=== PATIENT | female | born 1955 | race Caucasian/White ===

== ENCOUNTER 2019-08-09 08:52 | Outpatient (CLI) | payer MEDICARE, BC, SELFPAY ==
--- NOTE | ~2019-08-09 | MM_ITS ---
EXAMINATION: MM screening [facility] HISTORY: Screening mammogram TECHNIQUE: Craniocaudal and mediolateral oblique 3-D tomosynthesis images were obtained and synthetic 2-D images were generated. CAD analysis was submitted and interpreted. COMPARISON: 01/25/2017, 10/23/2015, 08/31/2014 BREAST PARENCHYMAL COMPOSITION: There are scattered areas of fibroglandular density. FINDINGS: There is no evidence of suspicious mass, calcification, or architectural distortion to sugg est malignancy in either breast. There has been no suspicious interval change. IMPRESSION: 1. No mammographic evidence of malignancy. 2. Recommend routine screening mammography in one year. BI-RADS Category 1: Negative Reviewed, dictated and finalized at location A. COMMUNICATIONS SPECIALIST
--- NOTE | ~2019-08-09 | DEXA_ITS ---
Bone Density Report Name: Gloria Carr Age: 64 Sex: Female Ethnicity: White Date of : 1955 Indication: postmenopausal; Referring Provider: HILLARY HASKINS Study: Bone densitometry was performed. Exam Date: August 09, 2019 Accession number: [id number] Bone Density: Region BMD T-score Z-score Classification AP Spine (L1-L4) 0.983 -0.6 1.2 Normal Femoral Neck (Left) 0.696 -1.4 0.1 Osteopenia Total Hip (Left) 0.832 -0.9 0.3 Normal Total Hip Bilateral Avg 0.852 -0.8 0.5 Normal Femoral Neck (Right) 0.727 -1.1 0.4 Osteopenia Total Hip (Right) 0.871 -0.6 0.7 Normal World Health Organization criteria for BMD impression classify patients as: Normal (T-score at or above -1.0), Osteopenia (T-score between -1.0 and -2.5), or Osteoporosis (T-score at or below -2.5). 10-year Fracture Risk(1): Major Osteoporotic Fracture 8.2% Hip Fracture 0.8% Reported Risk Factors: [place] (), Neck BMD=0.696, BMI=33.7 (1) FRAX(R) Version 3.08. Fracture probability calculated for an untreated patient. Fracture probability may be lower if the patient has received treatment. Previous Exams: Region Exam Age BMD T-score BMD Change BMD Change Date g/cm2 vs Baseline vs Previous AP Spine(L1-L4) 08/09/2019 64 0.983 -0.6 -0.051(-5.0%)# -0.051(-5.0%)# 07/25/2007 52 1.034 -0.1 Total Hip(Left) 08/09/2019 64 0.832 -0.9 -0.095(-10.3%) -0.095(-10.3%) 07/25/2007 52 0.927 -0.1 Total Hip(Right) 08/09/2019 64 0.871 -0.6 -0.048(-5.2%)# -0.048(-5.2%)# 07/25/2007 52 0.919 -0.2 *Denotes significance at 95% confidence level, LSC for AP Spine = 0.022 g/cm2, LSC for Total Hip = 0.027 g/cm2 Clinical Information Provided by Patient: Patient maximum height was 64 Menopause Age: 49 No regular weight bearing exercise Drinks caffeinated beverages Onset of menses at age 12 Number of children 1 Impression: The patient has low bone mass, based on the Left Femoral Neck T-score. The patient has an estimated ten-year risk of hip fracture of 0.8% and an estimated ten-year risk of major fracture of 8.2%, based on the WHO FRAX algorithm. No significant bone loss was observed. Discussion: BONE DENSITY IS LOW AT ONE OR MORE SKELETAL SITES. This patient's lowest T-score is low at one or more skeletal sites. It meets the World Health Organization's (WHO) criteria for ?low bone mass? (T-score between -1.0 and -2.5). The patient's 10-year risk of fracture as calc
== END 2019-08-09 08:53 | disposition home or self-care (01) ==
LOC: ANHIMG 08:54
PROVIDERS: PCP Family Medicine; Visit Provider Family Medicine
DX: Z12.31 Encounter for screening mammogram for malignant neoplasm of breast (principal); Z78.0 Asymptomatic menopausal state; M85.852 Other specified disorders of bone density and structure, left thigh; M85.851 Other specified disorders of bone density and structure, right thigh
CPT/HCPCS: 77063; 77067; 77080

== ENCOUNTER 2019-08-26 17:17 | Emergency (ER) | payer MEDICARE, BC, SELFPAY ==
[2019-08-26] VITALS (10 sets, daily range): BP systolic 102–181; BP diastolic 50–101; PULSE 68–91; RESP 16–20; TEMP 36.8–36.9; O2SAT 98–100
--- NOTE | ~2019-08-26 | XR_ITS ---
EXAMINATION: XR humerus LT EXAM DATE: 08/26/2019 18:14 INDICATION: Initial encounter following injury, with pain of the left humerus. TECHNIQUE: Orthogonal projections left humerus. There is no prior study for comparison. FINDINGS: There is complete left elbow posterior dislocation. Possible closed post traumatic fractur e of the coronoid process. Humeral shaft, left shoulder are unremarkable. IMPRESSION: Complete posterior elbow dislocation. Reviewed, dictated and finalized at location A. Y OPERATOR
--- NOTE | ~2019-08-26 | XR_ITS ---
XR elbow LT 2V 08/26/2019 21:50 Indication: Post reduction left elbow dislocation Procedure: 2 views left elbow Comparison: 08/26/2019 Findings: Interval reduction of left elbow, now in anatomic alignment. There are subtle ossific densi ties adjacent to the distal aspect of the humerus. Avulsion fracture cannot be excluded. No significa nt soft tissue abnormality. Impression: 1: Anatomic alignment of left elbow post reduction. Subtle ossific densities adjacent to the humerus. Cannot exclude avulsion fracture. Reviewed, dictated and finalized at location A. Impression: 1: Anatomic alignment of left elbow post reduction. Subtle ossific densities ad jacent to the humerus. Cannot exclude avulsion fracture.
--- NOTE | 2019-08-26 18:12 | ED.FALL ---
HPI - Fall General Chief Complaint: Fall <Jessa Almeida PA-C - Last Filed: 08/26/19 22:35> Stated Complaint: fall <JULY Trevino Last Filed: 08/26/19 22:35> Time Seen by Provider: 08/26/19 18:01 <Jessa Almeida PA-C - Last Filed: 08/26/19 22:35> Source: patient <JULY Trevino Last Filed: 08/26/19 22:35> Mode of arrival: ambulatory <JULY Trevino Last Filed: 08/26/19 22:35> Limitations: no limitations <JULY Trevino Last Filed: 08/26/19 22:35> History of Present Illness HPI Narrative: This is a 64 year old female that presents to the ER for left arm injury today. Reports she was outside her barn and tripped and fell forward. Reports falling face first onto the dirt. Reports landing on her left arm. Reports since she has had pain in the mid upper arm. Reports she is unable to move her arm. Denies prodromal symptoms, vision changes, vomiting, loss of consciousness, or numbness. <JULY Trevino Last Filed: 08/26/19 22:35> Related Data Home Medications: Home Medications Medication Instructions Recorded Confirmed esomeprazole magnesium 20 mg 20 mg PO DAILY 07/21/19 07/25/19 capsule,delayed release trazodone 100 mg tablet 100 mg PO .HS tablet 07/25/19 07/25/19 vit C 250 mg-vit E 200 unit-zinc 2 cap PO DAILY cap 07/25/19 07/25/19 ox 12.5 hy-rwjdch-onxkoq-zeax capsule latanoprost 08/26/19 pimecrolimus TOPICAL 08/26/19 <JULY Trevino Last Filed: 08/26/19 22:35> Allergies/Adverse Reactions: Allergies Allergy/AdvReac Type Severity Reaction Status Date / Time No Known Allergies Allergy Verified 08/26/19 17:59 <JULY Trveino Last Filed: 08/26/19 22:35> Review of Systems Review of Systems: Narrative: CONSTITUTIONAL: Denies fever EYES: Denies visual changes GASTROINTESTINAL: Denies vomiting MUSCULOSKELETAL: Reports joint pain, and myalgia. NEUROLOGIC: Denies headache, numbness, or weakness. <Jessa Almeida PA-C - Last Filed: 08/26/19 22:35> All systems reviewed & are unremarkable except as noted in HPI and below <Jessa Almeida PA-C - Last Filed: 08/26/19 22:35> [facility] Past Medical History Medical History: Medical History (Updated 08/26/19 @ 21:53 by Jessa Almeida PA-C) Essential (primary) hypertension Gastro-esophageal reflux disease without esophagitis Glaucoma H/O aortic valve stenosis Pure hypercholesterolemia Vitamin D deficiency <Jessa Almeida PA-C - Last Filed: 08/26/19 22:35> Social History Social History: Social History Smoking status: Never smoker Second hand tobacco smoke exposure: No Alcohol intake: never Gender identity (if verbalized by the patient): Female <Jessa Almeida PA-C - Last Filed: 08/26/19 22:35> Exam Narrative: Exam Narrative: GENERAL: Well-appearing, well-nourished, and in no acute distress. HEAD: Normocephalic. Superficial abrasion to the nose EYES: PERRLA and EOMI. ENT: Nares clear, no rhinorrhea or epistaxis. Mucous membranes moist. Oropharynx without tonsillar hypertrophy exudate or other lesions. Bilateral TMs pearly manning non-bulging NECK: Supple. No adenopathy or masses. No midline spinal tenderness CHEST: Clear to auscultation. No respiratory distress. No wheezes rales or rhonchi HEART: Regular rate and rhythm. No murmur heard. Normal peripheral pulses. EXTREMITIES: Normal range of motion, except decreased ROM in the left elbow due to pain. No edema. Normal radial pulses. Normal sensation SKIN: Warm, dry, no rash. NEURO: No focal deficits. Alert and oriented x3. Cranial nerves II through XII grossly PSYCH: Normal mood and affect <Jessa Almeida PA-C - Last Filed: 08/26/19 22:35> Const: General: cooperative, no acute distress and alert <Saba Agustin MD - Last Filed: 08/26/19 22:49> Nutritional Appearance: well nourished <Saba Vargas
--- NOTE | 2019-08-26 18:50 | PC.NURSE ---
Patient refusing IV at this time, states would like IV placed when she goes to room 8.
[2019-08-26] MEDS: ONDANSETRON INJ 4 MG/2 ML VIAL IV PUSH (19:00)
[2019-08-26] MEDS: MORPHINE SULFATE 4 MG/ML INJ IV PUSH ×2 (19:00→20:38)
--- NOTE | 2019-08-26 21:28 | PC.NURSE ---
KETAMINE 50 MG IVP AND PROPOFOL 40 MG IVP GIVEN PER DR CUNNINGHAM. 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 WILL CONTINUE TO MONITOR
== END 2019-08-26 22:42 | disposition home or self-care (01) ==
PROVIDERS: Emergency Provider Emergency Medicine; PCP Family Medicine
DX: S53.125A Posterior dislocation of left ulnohumeral joint, initial encounter (principal); I10 Essential (primary) hypertension; K21.9 Gastro-esophageal reflux disease without esophagitis; E78.00 Pure hypercholesterolemia, unspecified; E55.9 Vitamin D deficiency, unspecified; W01.0XXA Fall on same level from slipping, tripping and stumbling without subsequent striking against object, initial encounter
CPT/HCPCS: 24600; 73060; 73070; 96374; 96375; 96376; 99285; A4565; J0131; J2270; J2405; J2704; J7030

== ENCOUNTER 2020-04-18 09:53 | Outpatient (CLI) | payer MEDICARE, BC, SELFPAY ==
--- NOTE | 2020-04-18 11:00 | NEURO_ITS ---
Patient Number: [id number] Impression: # Complains of numbness of left lower extremity. # Normal nerve conduction study. # Normal needle/EMG exam. # Clinical correlation recommended. Nerve Conduction Studies Anti Sensory Summary Table Stim Site NR Peak (ms) P-T Amp (?V) Site1 Site2 Delta-P (ms) Dist (cm) Quentin (m/s) Left Sup Fibular Anti Sensory (Ant Lat Mall) 14 cm 3.0 11.5 14 cm Ant Lat Mall 3.0 16.0 53 Left Sural Anti Sensory (Lat Mall) Calf 3.9 18.2 Calf Lat Mall 3.9 16.0 41 Motor Summary Table Stim Site NR Onset (ms) O-P Amp (mV) Site1 Site2 Delta-0 (ms) Dist (cm) Quentin (m/s) Left Peroneal Motor (Vastus Med) Ankle 4.4 1.6 Popit Ankle 8.3 40.0 48 Popit 12.7 1.4 Left Tibial Motor (Abd Valenzuela Brev) Ankle 4.1 2.9 Knee Ankle 9.0 40.0 44 Knee 13.1 0.9 F Wave Studies NR F-Lat (ms) L-R F-Lat (ms) Left Peroneal (Mrkrs) (EDB) 48.75 Left Tibial (Mrkrs) (Abd Hallucis) 49.39 EMG Side Muscle Nerve Root Ins Act Fibs Amp Dur Recrt Comment Left AntTibialis Dp Br Fibular L4-5 Nml Nml Nml Nml Nml Left Gastroc Tibial S1-2 Nml Nml Nml Nml Nml Left Fibularis Long Sup Br Fibular L5-S1 Nml Nml Nml Nml Nml Left Flex Dig Long Tibial L5-S2 Nml Nml Nml Nml Nml Left Ext Dig Brev Dp Br Fibular L5, S1 Nml Nml Nml Nml Nml Left QuadratusFem QuadFemoris L4-5, S1 Nml Nml Nml Nml Nml MTDD
== END 2020-04-18 09:54 | disposition home or self-care (01) ==
LOC: ANHNEURO 09:55
PROVIDERS: PCP Family Medicine; Visit Provider Physician Assistant
DX: M79.662 Pain in left lower leg (principal)
CPT/HCPCS: 95886; 95908

== ENCOUNTER 2020-07-19 10:28 | Outpatient (CLI) | payer MEDICARE, BC, SELFPAY ==
[2020-07-19 11:54] LABS: Alanine Aminotransferase 19 U/L (4-35); Albumin Level 3.9 g/dL (3.5-5.1); Alkaline Phosphatase 75 U/L (38-126); Anion Gap 0 mmol/L (8-16); Aspartate Amino Transferase 23 U/L (14-36); Bilirubin,Total 0.4 mg/dL (0.2-1.3); Blood Urea Nitrogen 19 mg/dL (7-17); Carbon Dioxide 33 mmol/L (22-30); Chloride 105 mmol/L (98-107); Cholesterol 212 mg/dL (0-200); Estimated Glomerular Filt Rate > 60; Glucose 93 mg/dL (65-105); HDL Direct 50 mg/dL; Potassium 4.3 mmol/L (3.4-5.0); Sodium 138 mmol/L (137-145); Triglycerides 164 mg/dL (<150)
[2020-07-19 12:05] LABS: LDL Cholesterol Direct 109 mg/dL
== END 2020-07-19 10:29 | disposition home or self-care (01) ==
LOC: ANHLAB 10:30
PROVIDERS: PCP Family Medicine; Visit Provider Physician Assistant
DX: E78.5 Hyperlipidemia, unspecified (principal); I10 Essential (primary) hypertension
CPT/HCPCS: 36415; 80053; 80061

== ENCOUNTER 2020-09-12 18:55 | Emergency (ER) | payer MEDICARE, BC, SELFPAY ==
[2020-09-12 18:56] VITALS: BP 208/101; PULSE 75; RESP 16; TEMP 36.1; O2SAT 99
--- NOTE | 2020-09-12 19:53 | ED.SKABFB ---
HPI - Skin/Abscess/Foreign Bdy General Chief complaint: Skin/Abscess/Foreign Body Stated complaint: i think i have staph or MRSA Time Seen by Provider: 09/12/20 19:43 Source: patient, RN notes reviewed and old records reviewed History of Present Illness HPI narrative: 55-year-old female presents to emergency department for a rash on the lower part of her abdomen for the past 3 days. Patient reports it to be itchy and painful. She has never had this in the past before. She applied her ringworm cream to help with the rash. Patient denies being a diabetic. Patient also reports sweating a lot. No nausea or vomiting. No chest pain or shortness of breath. No fever or chills. Related Data Home Medications Medication Instructions Recorded Confirmed esomeprazole magnesium 20 mg 20 mg PO DAILY 07/21/19 01/18/20 capsule,delayed release trazodone 100 mg tablet 100 mg PO .HS tablet 07/25/19 01/18/20 vit C 250 mg-vit E 200 unit-zinc 2 cap PO DAILY cap 07/25/19 01/18/20 ox 12.5 yd-hxauyn-ivppnf-zeax capsule latanoprost 08/26/19 01/18/20 pimecrolimus TOPICAL 08/26/19 01/18/20 Allergies Allergy/AdvReac Type Severity Reaction Status Date / Time No Known Allergies Allergy Verified 02/13/20 10:02 Review of Systems Review of Systems: Narrative: CONSTITUTIONAL: Denies fever, chills, or sweats. EYES: Denies visual changes, redness, or discharge. ENT: Denies rhinorrhea, congestion, sore throat, or otalgia. CARDIOVASCULAR: Denies chest pain, palpitations, or edema. RESPIRATORY: Denies cough or dyspnea. GASTROINTESTINAL: Denies abdominal pain, nausea, vomiting, or diarrhea. GENITOURINARY: Denies dysuria or hematuria. SKIN: Reports rash and itching MUSCULOSKELETAL: Denies back pain, joint pain, or myalgia. NEUROLOGIC: Denies headache, numbness, dizziness, or weakness. PSYCHIATRIC: Denies anxiety or depression. All systems reviewed & are unremarkable except as noted in HPI and below (ROS) [facility] Past Medical History Medical History (Updated 09/12/20 @ 19:56 by Arnaldo King DO) Arthritis Elbow dislocation Essential (primary) hypertension Gastro-esophageal reflux disease without esophagitis Glaucoma H/O aortic valve stenosis Pure hypercholesterolemia Vision abnormalities Vitamin D deficiency Surgical History Surgical History History of total left knee replacement Family History Family History Sibling Family history of thyroid disease Hypertension Father Hypertension Mother Family history of Parkinson's disease Family history of heart disease in male family member before age 55 Social History Social History Smoking status: Never smoker Second hand tobacco smoke exposure: No Alcohol intake: current Gender identity (if verbalized by the patient): Female Exam Narrative: Exam Narrative: GENERAL: Well-appearing, well-nourished, and in no acute distress. HEAD: Normocephalic, atraumatic. EYES: PERRLA and EOMI. ENT: Nares clear, no rhinorrhea or epistaxis. Mucous membranes moist. NECK: Supple. CHEST: Clear to auscultation. No respiratory distress. HEART: Regular rate and rhythm. No murmur heard. Normal peripheral pulses. ABDOMEN: Soft, nontender, nondistended, normal active bowel sounds. EXTREMITIES: Normal range of motion. No edema. SKIN: Warm. Blanching rash in the skin fold of lower abdomen. NEURO: No focal deficits. Alert and oriented x3. PSYCH: Normal mood and affect. Course Vital Signs Vital signs: Vital Signs Temperature 36.1 C L 09/12/20 18:56 Pulse Rate 75 09/12/20 18:56 Respiratory Rate 16 09/12/20 18:56 Blood Pressure 208/101 H 09/12/20 18:56 Pulse Oximetry 99 09/12/20 18:56 Temperature 36.1 C L 09/12/20 18:56 Pulse Rate 75 09/12/20 18:56 Respiratory Rate 16 09/12/20 18:56 Blood Pressur
== END 2020-09-12 20:26 | disposition home or self-care (01) ==
PROVIDERS: Emergency Provider Emergency Medicine; PCP Family Medicine
DX: B35.9 Dermatophytosis, unspecified (principal); M19.90 Unspecified osteoarthritis, unspecified site; I10 Essential (primary) hypertension; K21.9 Gastro-esophageal reflux disease without esophagitis; E78.00 Pure hypercholesterolemia, unspecified; E55.9 Vitamin D deficiency, unspecified; Z96.652 Presence of left artificial knee joint
CPT/HCPCS: 99283

== ENCOUNTER → 2021-01-23 12:47 | Outpatient (CLI) | payer MEDICARE, BC, SELFPAY ==
--- NOTE | ~2021-01-23 | XR_ITS ---
EXAMINATION: XR lumbar spine min 4V DATE: 01/23/2021 13:29 INDICATION: Low back pain. TECHNIQUE: 5 views of lumbar spine were obtained. COMPARISON: None. FINDINGS: There is 4 mm anterolisthesis of L4 on L5. Vertebral body heights are normal. There is mild ly decreased disc height at L4-L5 and moderately decreased disc height at L5-S1. There is moderate to severe facet joint osteoarthritis on the right from L2-L3 through L5-S1 and on the left from L3-L4 t hrough L5-S1. IMPRESSION: 1. Moderate lumbar spondylosis. Reviewed, dictated and finalized at location A.
--- NOTE | ~2021-01-23 | XR_ITS ---
EXAMINATION: XR sacroiliac joints min 3V DATE: 01/23/2021 13:29 INDICATION: Sciatica, unspecified side. Low back pain. Pain at the sacroiliac joints. TECHNIQUE: 3 views of the sacrum and coccyx were obtained. COMPARISON: None. FINDINGS: Bone alignment is normal. No fracture. There is moderate lumbar spondylosis. There is mild osteoarthritis of the hips. The sacroiliac joints are normal. IMPRESSION: 1. Normal sacroiliac joints. 2. Mild osteoarthritis of the hips. 3. Moderate lumbar spondylosis. Reviewed, dictated and finalized at location A.
== END ==
PROVIDERS: PCP Family Medicine; Visit Provider Physician Assistant
DX: M16.0 Bilateral primary osteoarthritis of hip (principal); M47.896 Other spondylosis, lumbar region
CPT/HCPCS: 72110; 72202

== ENCOUNTER 2021-05-02 15:32 | Emergency (ER) | payer MEDICARE, BC, SELFPAY ==
[2021-05-02 15:41] VITALS: BP 164/107; PULSE 90; RESP 16; TEMP 36.2; O2SAT 100
--- NOTE | 2021-05-02 15:49 | PC.NURSE ---
[place] poison control contacted (Ragini FOSS). states pt is to wash hands to remove chemical and slow rewarming and then treat pt for frostbite.
--- NOTE | 2021-05-02 16:22 | ED.EXTPRO ---
HPI - Extremity Problem General Chief complaint: Extremity Problem,Nontraumatic Stated complaint: finger pain Time Seen by Provider: 05/02/21 16:02 Source: patient Mode of arrival: ambulatory Limitations: no limitations History of Present Illness HPI Narrative: Patient was using a can of ether to to start Engine, after finishing the ether can noticed that the tip of her right index is white, painful and numb. Related Data Home Medications Medication Instructions Recorded Confirmed esomeprazole magnesium 20 mg 20 mg PO DAILY 07/21/19 01/23/21 capsule,delayed release trazodone 100 mg tablet 100 mg PO .HS tablet 07/25/19 01/23/21 vit C 250 mg-vit E 200 unit-zinc 2 cap PO DAILY cap 07/25/19 01/23/21 ox 12.5 hp-dvjmlp-cgliut-zeax capsule latanoprost 08/26/19 01/23/21 pimecrolimus TOPICAL 08/26/19 01/23/21 flaxseed oil 1,000 mg capsule 1,000 mg PO DAILY 01/22/21 01/23/21 flaxseed oil 1,300 mg-omega 3,6,9 cap PO 01/22/21 01/23/21 845 mg-117 mg-117 mg capsule glucosamine-chondroitin 250 mg-200 2 tablet PO TID 01/22/21 01/23/21 mg tablet multivitamin 1 tablet PO DAILY 01/22/21 01/23/21 Allergies Allergy/AdvReac Type Severity Reaction Status Date / Time No Known Allergies Allergy Verified 01/23/21 12:13 Review of Systems Review of Systems: CONSTITUTIONAL: Denies fever, chills, or sweats. EYES: Denies visual changes, redness, or discharge. ENT: Denies rhinorrhea, congestion, sore throat, or otalgia. CARDIOVASCULAR: Denies chest pain, palpitations, or edema. RESPIRATORY: Denies cough or dyspnea. GASTROINTESTINAL: Denies abdominal pain, nausea, vomiting, or diarrhea. GENITOURINARY: Denies dysuria or hematuria. SKIN: Denies rash or itching. MUSCULOSKELETAL: Denies back pain, joint pain, or myalgia. NEUROLOGIC: Denies headache, numbness, or weakness. PSYCHIATRIC: Denies anxiety or depression. [facility] Past Medical History Medical History Arthritis Elbow dislocation Essential (primary) hypertension Gastro-esophageal reflux disease without esophagitis Glaucoma H/O aortic valve stenosis Pure hypercholesterolemia Vision abnormalities Vitamin D deficiency Surgical History Surgical History History of total left knee replacement Family History Family History Sibling Family history of thyroid disease Hypertension Father Hypertension Mother Family history of Parkinson's disease Family history of heart disease in male family member before age 55 Social History Social History Smoking status: Never smoker Second hand tobacco smoke exposure: No Alcohol intake: current Alcohol use details: 2 drinks per month Gender identity (if verbalized by the patient): Female Exam Narrative: General appearance: Well-developed, well-nourished Skin: Normal color, the tip of the right index showing tense feeling, normal coloration like the rest of the fingers, slightly tender to touch, normal till the skin, no blisters, normal pulse oximetry like the rest of the other fingers, normal capillary refill Vascular: Normal peripheral pulses, normal capillary refill. 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
--- NOTE | 2021-05-02 16:25 | PC.NURSE ---
pulse ox on right index finger 96%, and 96% on right middle fnger
== END 2021-05-02 17:32 | disposition home or self-care (01) ==
PROVIDERS: Emergency Provider Emergency Medicine; PCP Family Medicine
DX: T69.9XXA Effect of reduced temperature, unspecified, initial encounter (principal); T33.90XA Superficial frostbite of unspecified sites, initial encounter; M19.90 Unspecified osteoarthritis, unspecified site; I10 Essential (primary) hypertension; E78.00 Pure hypercholesterolemia, unspecified
CPT/HCPCS: 99283

== ENCOUNTER 2021-11-04 09:23 | Outpatient (CLI) | payer MEDICARE, BC, SELFPAY ==
[2021-11-04 10:00] LABS: Alanine Aminotransferase 21 U/L (6-35); Albumin Level 4.4 g/dL (3.5-5.1); Alkaline Phosphatase 76 U/L (38-126); Anion Gap 3 mmol/L (8-16); Aspartate Amino Transferase 24 U/L (14-36); Bilirubin,Total 0.7 mg/dL (0.2-1.3); Blood Urea Nitrogen 19 mg/dL (7-17); Calcium 9.1 mg/dL (8.4-10.2); Carbon Dioxide 31 mmol/L (22-30); Chloride 105 mmol/L (98-107); Cholesterol 243 mg/dL (0-200); Estimated Glomerular Filt Rate > 60; Glucose 99 mg/dL (65-110); HDL Direct 59 mg/dL; Potassium 4.6 mmol/L (3.4-5.0); Sodium 139 mmol/L (137-145); Triglycerides 98 mg/dL (<150)
[2021-11-04 10:11] LABS: LDL Cholesterol Direct 124 mg/dL
[2021-11-04 10:37] LABS: Hemoglobin A1C 5.3 % (<5.7)
== END 2021-11-04 09:24 | disposition home or self-care (01) ==
LOC: ANHLAB 09:25
PROVIDERS: PCP Family Medicine; Visit Provider Physician Assistant
DX: Z13.1 Encounter for screening for diabetes mellitus (principal); R73.09 Other abnormal glucose; E78.5 Hyperlipidemia, unspecified
CPT/HCPCS: 36415; 80053; 80061; 83036

== ENCOUNTER 2022-01-27 08:42 | Outpatient (CLI) | payer MEDICARE, BC, SELFPAY ==
--- NOTE | ~2022-01-27 | MM_ITS ---
EXAMINATION: MM screening [facility] BI w [facility] HISTORY: Screening mammogram TECHNIQUE: Craniocaudal and mediolateral oblique 3-D tomosynthesis images were obtained and synthetic 2-D images were generated. CAD analysis was submitted and interpreted. COMPARISON: 08/09/2019, 01/25/2017, 10/23/2015 BREAST PARENCHYMAL COMPOSITION: There are scattered areas of fibroglandular density. FINDINGS: There is no suspicious mass, calcification, or architectural distortion to suggest malignan cy in either breast. There has been no suspicious interval change. IMPRESSION: 1. No mammographic evidence of malignancy. 2. Recommend routine screening mammography in one year. BI-RADS Category 1: Negative Reviewed, dictated and finalized at location A.
== END 2022-01-27 08:43 | disposition home or self-care (01) ==
PROVIDERS: PCP Family Medicine; Visit Provider Physician Assistant
DX: Z12.31 Encounter for screening mammogram for malignant neoplasm of breast (principal)
CPT/HCPCS: 77063; 77067

== ENCOUNTER 2022-04-18 12:19 | Emergency (ER) | payer MEDICARE, BC, SELFPAY ==
--- NOTE | ~2022-04-18 | XR_ITS ---
XR shoulder RT min 2V 04/18/2022 12:43 Indication: Right shoulder pain after heavy lifting Procedure: 4 views right shoulder Comparison: No prior studies for comparison. Findings: No acute fracture or traumatic malalignment. There are circumscribed areas of ossification surrounding the humeral head, possibly calcific tendinopathy. There is mild polyarticular osteoarthri tis. No significant abnormality of the ribs. Impression: 1: No acute fracture. 2: Mild polyarticular osteoarthritis with possible calcific tendinopathy. Reviewed, dictated and finalized at location A. Impression: 1: No acute fracture. 2: Mild polyarticular osteoarthritis with possible calcific tendinopathy.
[2022-04-18 12:30] VITALS: BP 138/87; PULSE 84; RESP 16; TEMP 36.4; O2SAT 98
[2022-04-18] MEDS: IBUPROFEN 600 MG TABLET PO (13:05)
--- NOTE | 2022-04-18 13:09 | ED.UPPEXIN ---
HPI - Extremity Injury (Upper) General Chief Complaint: Extremity Injury, Upper Stated Complaint: right shoulder pain Time Seen by Provider: 04/18/22 12:39 History of Present Illness HPI narrative: Patient is a 67-year-old female who presents ER with right shoulder pain. 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 She now has pain with external rotation and trying to lift her arm up. No numbness or tingling. No direct trauma to the shoulder. Has not tried any pain medication. Related Data Home Medications Medication Instructions Recorded Confirmed esomeprazole magnesium 20 mg 20 mg PO DAILY 07/21/19 06/09/21 capsule,delayed release (Nexium) trazodone 100 mg tablet 100 mg PO .HS 07/25/19 06/09/21 vit C 250 mg-vit E 200 unit-zinc 2 cap PO DAILY 07/25/19 06/09/21 ox 12.5 qx-ragiem-irenkw-zeax capsule (ICaps AREDS2) latanoprost 0.005 % eye drops 08/26/19 06/09/21 pimecrolimus 1 % topical cream topical 08/26/19 06/09/21 flaxseed oil 1,000 mg capsule 1,000 mg PO DAILY 01/22/21 06/09/21 (Arbon-3 Flaxseed Oil) glucosamine-chondroitin 250 mg-200 2 tablet PO TID 01/22/21 06/09/21 mg tablet (Osteo Bi-Flex) multivitamin (Multiple Vitamins 1 tablet PO DAILY 01/22/21 06/09/21 tablet) calcium carb 300 mg-D3 800 1 tablet PO DAILY 12/11/21 unit-mag ox 25 mg-certified endoscopy technician 0.5 mg-donato-Zn tablet (Caltrate + D3 Plus Minerals) Allergies Allergy/AdvReac Type Severity Reaction Status Date / Time No Known Allergies Allergy Verified 04/18/22 13:11 Review of Systems Constitutional: Constitutional: Denies chills, Denies fatigue and Denies fever(s) Gastrointestinal: Gastrointestinal: Denies abdominal pain, Denies nausea and Denies vomiting Musculoskeletal: Musculoskeletal: Reports arthralgias and Denies joint swelling Neurologic: Denies focal weakness and Denies numbness PMFSH Past Medical History Medical History (Updated 04/18/22 @ 13:11 by Charles Jensen MD) Aortic stenosis Arthritis Elbow dislocation Essential (primary) hypertension Gastro-esophageal reflux disease without esophagitis Glaucoma H/O aortic valve stenosis Pure hypercholesterolemia Vision abnormalities Vitamin D deficiency Surgical History Surgical History History of total left knee replacement Family History Family History Sibling Family history of thyroid disease Hypertension Father Hypertension Mother Family history of Parkinson's disease Family history of heart disease in male family member before age 55 Social History Social History (Updated 12/11/21 @ 09:57 by Viri Martin [facility]) Smoking status: Never smoker Second hand tobacco smoke exposure: No Alcohol intake: never Substance use: never Substance use type: does not use Gender identity (if verbalized by the patient): Female Exam Narrative: GENERAL: Well-appearing, well-nourished, and in no acute distress. HEAD: Normocephalic, atraumatic. ENT: Mucous membranes moist. CHEST: Clear to auscultation. No respiratory distress. HEART: Regular rate and rhythm. Normal peripheral pulses. EXTREMITIES: Tender palpation right anterior shoulder. Increased pain with external rotation. Normal internal rotation patient able to reach midline of her mid back. No swelling or bruising noted. SKIN: Warm, dry, no rash. NEURO: Alert and oriented x3. PSYCH: Normal mood and affect. Course Course Emergency Course: Patient resting comfortably. Informed of results. Discussed treatment plan. Patient verbalized understanding. Vital Signs Vital signs: Vital Signs Temperature 97.6 F 04/18/22 12:30 Pulse Rate 84 04/18/22 12:30 Respiratory Rate 16 04/18/22 12:30 Blood Pressure 138/87 04/18/22 12:30 Pulse Oximetry 98 04/18/22 12:30 Temperature 97.6 F 04/18/22 12:30 Pulse Rate 84 04/18/22 12:30
== END 2022-04-18 13:35 | disposition home or self-care (01) ==
LOC: ANHED 13:19
PROVIDERS: Emergency Provider Emergency Medicine; PCP Family Medicine
DX: M75.31 Calcific tendinitis of right shoulder (principal); I35.0 Nonrheumatic aortic (valve) stenosis; I10 Essential (primary) hypertension; M19.011 Primary osteoarthritis, right shoulder; K21.9 Gastro-esophageal reflux disease without esophagitis; H40.9 Unspecified glaucoma; E78.00 Pure hypercholesterolemia, unspecified; E55.9 Vitamin D deficiency, unspecified; Z96.652 Presence of left artificial knee joint
CPT/HCPCS: 73030; 99283; A9270

== ENCOUNTER 2022-05-23 09:40 | Emergency (ER) | payer MEDICARE, BC, SELFPAY ==
--- NOTE | ~2022-05-23 | XR_ITS ---
EXAMINATION: XR chest 1V portable 05/23/2022 10:38 INDICATION: Cough PROCEDURE: AP portable chest COMPARISON: No prior studies for comparison. FINDINGS: The lungs are clear. The cardiomediastinal silhouette is within normal limits. There are no pleural effusions. There is no pneumothorax suspected. IMPRESSION: 1: NO ACUTE CARDIOPULMONARY DISEASE. Reviewed, dictated and finalized at location A. [employer]
[2022-05-23 09:47] VITALS: BP 150/85; PULSE 97; RESP 16; TEMP 37; O2SAT 100
[2022-05-23 10:26] VITALS: BP 158/93; PULSE 100; RESP 16; O2SAT 100
[2022-05-23 10:54] LABS: Influenza A QL RT-PCR Negative (Negative); Influenza B QL RT-PCR Negative (Negative); RSV RNA, RT-PCR Negative (Negative); SARS-CoV-2 RNA PCR Positive
--- NOTE | 2022-05-23 11:15 | ED.URI ---
HPI - URI/Sore Throat General Chief Complaint: Upper Respiratory Infection Stated Complaint: sinus problems Time Seen by Provider: 05/23/22 10:31 Source: patient Mode of arrival: ambulatory Limitations: no limitations History of Present Illness HPI Narrative: Patient is a 67-year-old female who presents the ED with report of sinus pressure. Patient reports having sinus issues for the last 1 week, including sinus congestion, sinus pressure, headache, mild cough, sore throat, postnasal drip. She reported having a subjective fever this morning, which prompted her presentation. She did not take anything for her fever. Denies nausea, vomiting, chest pain, difficulty breathing, abdominal pain. Patient reports she is scheduled to undergo a ARACELI next week for further management of aortic stenosis. Related Data Home Medications Medication Instructions Recorded Confirmed esomeprazole magnesium 20 mg 20 mg PO DAILY 07/21/19 06/09/21 capsule,delayed release (Nexium) trazodone 100 mg tablet 100 mg PO .HS 07/25/19 06/09/21 vit C 250 mg-vit E 200 unit-zinc 2 cap PO DAILY 07/25/19 06/09/21 ox 12.5 vu-ciccfr-bpxqtb-zeax capsule (ICaps AREDS2) latanoprost 0.005 % eye drops 08/26/19 06/09/21 pimecrolimus 1 % topical cream topical 08/26/19 06/09/21 flaxseed oil 1,000 mg capsule 1,000 mg PO DAILY 01/22/21 06/09/21 (Krypton-3 Flaxseed Oil) glucosamine-chondroitin 250 mg-200 2 tablet PO TID 01/22/21 06/09/21 mg tablet (Osteo Bi-Flex) multivitamin (Multiple Vitamins 1 tablet PO DAILY 01/22/21 06/09/21 tablet) calcium carb 300 mg-D3 800 1 tablet PO DAILY 12/11/21 unit-mag ox 25 mg-copper tapper 0.5 mg-donato-Zn tablet (Caltrate + D3 Plus Minerals) Allergies Allergy/AdvReac Type Severity Reaction Status Date / Time No Known Allergies Allergy Verified 04/18/22 13:11 Review of Systems Review of Systems: CONSTITUTIONAL: Reports subjective fever. ENT: Reports sinus pressure and congestion, PND, sore throat. CARDIOVASCULAR: Denies chest pain. RESPIRATORY: Reports mild cough. Denies dyspnea. GASTROINTESTINAL: Denies abdominal pain, nausea, vomiting, or diarrhea. MUSCULOSKELETAL: Denies myalgia. NEUROLOGIC: Reports headache. All systems reviewed & are unremarkable except as noted in HPI and below PMFSH Past Medical History Medical History Aortic stenosis Arthritis Elbow dislocation Essential (primary) hypertension Gastro-esophageal reflux disease without esophagitis Glaucoma H/O aortic valve stenosis Pure hypercholesterolemia Vision abnormalities Vitamin D deficiency Surgical History Surgical History History of total left knee replacement Family History Family History Sibling Family history of thyroid disease Hypertension Father Hypertension Mother Family history of Parkinson's disease Family history of heart disease in male family member before age 55 Social History Social History Smoking status: Never smoker Second hand tobacco smoke exposure: No Alcohol intake: never Substance use: never Substance use type: does not use Gender identity (if verbalized by the patient): Female Exam Narrative: GENERAL: Well appearing, well-nourished, non-toxic, in no acute distress. HEAD: Normocephalic, atraumatic. EYES: PERRLA, EOMI, conjunctiva clear. ENT: No significant posterior pharynx erythema. No tonsillar hypertrophy or exudate. No nasal discharge. MMs moist. NECK: Supple. No adenopathy, no masses. RESPIRATORY: Airway patent, respirations nonlabored. Clear to auscultation bilaterally, no rales, rhonchi, wheezing. CARDIOVASCULAR: Regular rate and rhythm, +murmur. Radial pulses 2+ and equal bilaterally. ABDOMINAL: Soft, nontender, nondistended, no hepatosplenomegaly. Normo
== END 2022-05-23 12:47 | disposition home or self-care (01) ==
PROVIDERS: Emergency Medicine; Emergency Provider Physician Assistant; PCP Family Medicine
DX: U07.1 COVID-19 (principal); I35.0 Nonrheumatic aortic (valve) stenosis; I10 Essential (primary) hypertension; E78.00 Pure hypercholesterolemia, unspecified; E55.9 Vitamin D deficiency, unspecified; H40.9 Unspecified glaucoma; K21.9 Gastro-esophageal reflux disease without esophagitis; M19.90 Unspecified osteoarthritis, unspecified site; Z96.652 Presence of left artificial knee joint
CPT/HCPCS: 71045; 87637; 99283

== ENCOUNTER 2022-06-23 10:24 | Outpatient (CLI) | payer MEDICARE, BC, SELFPAY ==
[2022-06-23 12:21] LABS: Alanine Aminotransferase 30 U/L (6-35); Albumin Level 4.4 g/dL (3.5-5.1); Alkaline Phosphatase 73 U/L (38-126); Anion Gap 6 mmol/L (8-16); Aspartate Amino Transferase 24 U/L (14-36); Bilirubin,Total 0.5 mg/dL (0.2-1.3); Blood Urea Nitrogen 17 mg/dL (7-17); Calcium 9.2 mg/dL (8.4-10.2); Carbon Dioxide 31 mmol/L (22-30); Chloride 106 mmol/L (98-107); Cholesterol 260 mg/dL (0-200); Estimated Glomerular Filt Rate > 60; Glucose 88 mg/dL (65-110); HDL Direct 59 mg/dL; Potassium 4.1 mmol/L (3.4-5.0); Sodium 143 mmol/L (137-145); Triglycerides 118 mg/dL (<150)
[2022-06-23 12:32] LABS: LDL Cholesterol Direct 125 mg/dL
== END 2022-06-23 10:25 | disposition home or self-care (01) ==
PROVIDERS: PCP Family Medicine; Referring Provider Internal Medicine Cardiovascular Disease; Visit Provider Physician Assistant
DX: I10 Essential (primary) hypertension (principal); Z13.220 Encounter for screening for lipoid disorders; Z13.1 Encounter for screening for diabetes mellitus; I35.0 Nonrheumatic aortic (valve) stenosis; Z01.810 Encounter for preprocedural cardiovascular examination
CPT/HCPCS: 36415; 80053; 80061; 83036

== ENCOUNTER 2023-03-22 10:00 | Outpatient (CLI) | payer MEDICARE, BC, SELFPAY ==
--- NOTE | ~2023-03-22 | MM_ITS ---
EXAMINATION: MM screening [facility] [place] HISTORY: Screening mammogram TECHNIQUE: Craniocaudal and mediolateral oblique 3-D tomosynthesis images were obtained and synthetic 2-D images were generated. CAD analysis was submitted and interpreted. COMPARISON: 01/27/2022, 08/09/2019, 01/25/2017 BREAST PARENCHYMAL COMPOSITION: There are scattered areas of fibroglandular density. FINDINGS: No suspicious mass, calcification, or architectural distortion are identified in either ander ast to suggest malignancy. There has been no suspicious interval change. IMPRESSION: 1. No mammographic evidence of malignancy. 2. Recommend routine screening mammography in one year. BI-RADS Category 1: Negative Reviewed, dictated and finalized at location A.
== END 2023-03-22 10:01 | disposition home or self-care (01) ==
LOC: ANHIMG 10:02
PROVIDERS: PCP Family Medicine; Visit Provider Family Medicine
DX: Z12.31 Encounter for screening mammogram for malignant neoplasm of breast (principal)
CPT/HCPCS: 77063; 77067

== ENCOUNTER 2023-05-21 10:51 | Outpatient (CLI) | payer MEDICARE, BC, SELFPAY ==
[2023-05-21 11:17] LABS: Basophils Absolute Auto 0.1 K/mm3 (0.0-0.1); Basophils Percent Auto 0.7 % (0.2-1.2); Eosinophils Absolute Auto 0.1 K/mm3 (0-0.3); Eosinophils Percent Auto 1.4 % (0-4.4); Hemoglobin 13.6 g/dL (12.0-15.0); Immature Granulocyte Absolute 0.02 K/mm3 (0.00-0.031); Immature Granulocyte Percent A 0.3 % (0-0.5); Lymphocytes Absolute Auto 2.03 K/mm3 (0.9-3.2); Lymphocytes Percent Auto 26.7 % (18.3-44.2); Mean Corpuscular HGB Conc 32.4 g/dl (32-36); Mean Corpuscular Hemoglobin 28.9 pg (26-34); Mean Corpuscular Volume 89.4 fl (80-100); Mean Platelet Volume 9.8 fl (7.4-10.4); Monocytes Absolute Auto 0.6 K/mm3 (0.1-0.6); Monocytes Percent Auto 7.8 % (2.6-8.5); Neutrophils Absolute Auto 4.8 K/mm3 (1.3-6.7); Neutrophils Percent Auto 63.1 % (45.5-73.1); Platelet Count Result 257 k/mm3 (150-375); Red Cell Distribution Width 13.5 % (11.5-14.5); White Blood Count 7.6 K/mm3 (4.5-10.0)
[2023-05-21 11:26] LABS: Alanine Aminotransferase 22 U/L (6-35); Albumin Level 4.2 g/dL (3.5-5.1); Alkaline Phosphatase 84 U/L (38-126); Anion Gap 6 mmol/L (8-16); Aspartate Amino Transferase 22 U/L (14-36); Bilirubin,Total 0.6 mg/dL (0.2-1.3); Blood Urea Nitrogen 18 mg/dL (7-17); Calcium 9.3 mg/dL (8.4-10.2); Carbon Dioxide 29 mmol/L (22-30); Chloride 105 mmol/L (98-107); Cholesterol 243 mg/dL (0-200); Estimated Glomerular Filt Rate > 60; Glucose 93 mg/dL (65-110); HDL Direct 61 mg/dL; Potassium 4.1 mmol/L (3.4-5.0); Sodium 140 mmol/L (137-145); Triglycerides 117 mg/dL (<150)
[2023-05-21 11:37] LABS: LDL Cholesterol Direct 123 mg/dL
[2023-05-21 11:42] LABS: Hemoglobin A1C 5.1 % (<5.7)
== END 2023-05-21 10:52 | disposition home or self-care (01) ==
PROVIDERS: PCP Family Medicine; Referring Provider Family Medicine; Visit Provider Physician Assistant Medical
DX: R53.83 Other fatigue (principal); R73.9 Hyperglycemia, unspecified; E78.2 Mixed hyperlipidemia
CPT/HCPCS: 36415; 80053; 80061; 83036; 85025

== ENCOUNTER 2025-01-15 06:57 | Outpatient (CLI) | payer MEDICARE, BC, SELFPAY ==
--- OUTSIDE RECORDS SUMMARY | 2025-01-15 07:01 | XMS_ITS | Encounter Summary ---
Author Organization [facility] Address [address] [place] [address] Care Team Providers Care Sports Physician Name Role Phone Nely Matamoros MD Primary Care Provider [phone] Encounter Details Date Type Department Care Team (Late st Contact Info) Description 12/20/2024 Cardiology Conference [facility] Non-[facility] Cardiac Diagnostic Testing [address] [place] [address] Charles Stapleton, [place] Social History Tobacco Use Types Packs/Day Years Used Date Smoking Tobacco: Never Passive Smoke Exposure: Never Smokeless Tobacco: Never Alcohol Use Standard Drinks/Week Comments Yes 0 (1 standard drink = 0.6 oz pur e alcohol) AUDIT-C Answer Date Recorded Frequency of Alcohol Consumption Not on file 06/25/2022 Q2: How many drinks containi ng alcohol do you have on a typical day when you are drinking? 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 Gender Identity Not on file Sexual Orientation Not on file documented as of this encounter Plan of Treatment Upcoming Encounters Date Type Department Care Team (Latest Contact Info) Description 01/18/2025 11:30 AM CDT Hospital Encounter [facility] Card[facility] [address] [place] [address] Gunner Sauceda MD [address] [place], [place] [id number] Aortic valve stenosis, etiology of cardiac valve disease unspecified 01/18/2025 11:30 AM CDT - 01/18/2025 1:00 PM CDT Surgery [facility] [address] [place] [address] Gunner Sauceda MD [address] [facility] [address] [place] [id number] [place] [address] LEFT HEART CATHETERIZATION WITH CORONARY ANGIOGRAPHY AND WITH OR WITHOUT LEFT VENTRICULOGRAM [id number] documented as of this encounter Visit Diagnoses Not on filedocumented in this encounter Care Teams Sports Physician Relationship Specialty Start Date End Date Nely Matamoros MD PCP - General 10/23/16 documented as of this encounter
--- OUTSIDE RECORDS SUMMARY | 2025-01-15 07:01 | XMS_ITS | Clinical Summary ---
Author Organization [facility] Address [address] [place] [id number] Care Team Providers Care Clinical Esthetician Name Role Phone Nely Matamoros MD Primary Care Provider [phone] Social History Tobacco Use Types Packs/Day Years Used Date Smoking Tobacco: Never Assessed Comments Unknown Sex and Gender Information Value Date Recorded Sex Assigned at Not on file Legal Sex Female 6:53 AM CDT Gender Identity Not on file Sexual Orientation Not on file Plan of Treatment Health Maintenance Due Date Last Done Comments Colorectal Cancer Screening Colonoscopy (10 Years) 1954 Hepatitis C 1972 DTaP, Tdap and Td Vaccines ( 1 - Tdap) 1973 Mammogram Screening 1994 Pneumococcal Vaccine: 50+ Ye ars (1 of 1 - PCV) 2004 Zoster Vaccines (2 of 3) 02/22/2017 12/28/2016 Annual Medicare Wellness Visit 2019 Dexa Scan (General) 2019 COVID-19 Vaccine ( - 2023-2 5 season) 2024 RSV Immunization or 60+ Years (1 - 1-dose 75+ series) 2029 Meningococcal B Vaccine Aged Out No l onger eligible based on patient's age to complete this topic Meningococcal Vaccine Aged Out No waldo jonnie eligible based on patient's age to complete this topic RSV Immunizations Under 20 Months Aged Out No longer eligible based on patient's age to complete this topic Insurance [facility] MEDICARE Care Teams Clinical Esthetician Relationship Specialty Start Date End Date Nely Matamoros MD PCP - General FAMILY PRACTICE 01/02/20
--- OUTSIDE RECORDS SUMMARY | 2025-01-15 07:02 | XMS_ITS | Clinical Summary ---
Author Organization [facility] Address [address] [address] Phone Care Team Providers Care Entry Level Lab Technician Name Role Phone Sammie Robbins MD Primary Care Provider [phone] Allergies No known active allergies Medications ESOMEPRAZOLE MAG TRIHYDRATE (NEXIUM PO) Take by mouth. Active TRAZODONE HCL (TRAZODONE PO) Take by mouth. Active FLUORIDE ION/MULTIVITAMIN S (MULTI-VITAMIN PO) Take by mouth. Active OMEGA-3 FATTY ACIDS (FISH OIL PO) Take by mouth. Active aspirin (SOHAIL) 81 mg Oral Tab Take by mouth. Active Active Problems Patient Care Coordination No te Formatting of this note migh t be different from the original. 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 Gender Identity Not on file Sexual Orientation Not on file Last Filed Vital Signs Vital Sign Reading Time Taken Comments Blood Pressure 132/80 04/15/2009 11:51 AM CDT Pulse - - Temperature - - Respiratory Rate - - Oxygen Saturation - - Inhaled Oxygen Concentration - - Weight 67.6 kg (149 lb) 04/15/2009 11:51 AM CDT Height 162.6 cm (5' 4) 04/15/2009 11:51 AM CDT Body Mass Index 25.58 04/15/2009 11:51 AM CDT Plan of Treatment Health Maintenance Due Date Last Done Comments DTAP/TDAP/TD VACCINES (1 - Tdap) 1973 COLORECTAL SCREENING 1999 Colorectal Cancer Screening 1999 FIT-DNA Q 3 years 1999 FIT/FOBT Q 1 year 1999 Flex Sig/CT Colonography Q 5 years 1999 PNEUMOCOCCAL VACCINE 50+ YEARS (1 of 1 - PCV) 03/11/20 04 ZOSTER VACCINE (1 of 2) 2004 BREAST CANCER SCREENING 04/15/2010 04/15/2009 OSTEOPOROSIS SCREENING 2019 INFLUENZA VACCINE (#1) 2025 RSV VACCINE (60+ or ) (1 - 1-dose 75+ series) 2029 Procedures Procedure Name Priority Date/Time Associated Diagnosis Comments MAMMO DIAGNOSTIC UNI LEFT W OR WO CAD Routine 04/15/2009 from Last 3 Months or Most Recently Relevant to Health Maintenance Results * MAMMO DIGITAL DIAG UNI LEFT (04/15/2009) Anatomical Region Laterality Modality Breast Left Other us Michelle Whitfield MD MAMMO ORDERABLES Final Resul t from Last 3 Months or Most Recently Relevant to Health Maintenance Insurance Care Teams Entry Level Lab Technician Relationship Specialty Start Date End Date Samm[place] [address] PCP - General 09/18/08
--- OUTSIDE RECORDS SUMMARY | 2025-01-15 07:02 | XMS_ITS | Clinical Summary ---
Author Organization [address] Address [address] [place] [address] Care Team Providers Care Data Warehouse Architect Name Role Phone Nely Matamoros MD Primary Care Provider [phone] Allergies No known active allergies Medications calcium carbonate-vitami n D3 (CALCIUM+D) 400-133.3 mg-unit tablet 0 0 5 Active omega-3 fatty acids (FISH OIL) 300 mg capsule 300 mg. 0 0 5 Active latanoprost (XALATAN) 0.005 % ophthalmic solution Administer 1 drop into both eyes nightly Active esomeprazole DR (NexIUM) 20 mg capsule Take 1 capsule (20 mg total) by mouth daily before breakfast Active tolterodine LA (DETROL LA) 4 mg 24 hr capsule Take 1 capsule (4 mg total) by mouth daily 2 Active flaxseed oiL oil 1 tablet Act el multivit-mineral -iron-lutein tablet Take 1 tablet by mouth Active pimecrolimus (ELIDEL) 1 % cream APPLY CREAM TOPICALLY TO AFFECTED AREAS ON FACE TWICE DAILY. 30 g 2 4 Active traZODone (DESYREL) 100 mg tabletIndication s:Persistent disorder of initiating or maintaining sleep TAKE ONE TABLET BY MOUTH 30-60 MINUTES BEFORE BEDTIME NIGHTLY 90 tablet 3 4 Active lisinopriL (PRINIVIL,ZESTRI L) 20 mg tablet Take 1 tablet by mouth once daily 90 tablet 3 5 Active clobetasoL (TEMOVATE) 0.05 % external solution Apply to scalp QD 120 mL 11 5 Active Active Problems Problem Noted Date Diagnosed Date Aortic valve stenosis 04/22/2022 Overview (04/22/2022): Added automatically from request for surgery [id number] Postoperative follow-up 12/27/2020 Acid reflux 12/27/2020 Knee pain 12/27/2020 Knee stiff 12/27/2020 History of total knee arthroplasty 03/16/2019 Osteoarthritis of knee 03/16/2019 Class 1 obesity due to exces s calories with serious comorbidity and body mass index (BMI) of 30.0 to 30.9 in adult 11/09/2016 Overview (11/13/2016): Adult BMI 31.0-31.9 kg/sq m Keratosis, senilis 11/20/2015 Solar lentiginosis 11/20/2015 Positional sleep apnea 11/01/2014 Overview (09/24/2016): Positional sleep apnea Assessment & Plan (12/27/2018 10:02 AM CDT): She will use a body pillow for avoidance of the supine position. Reviewed with the patient the importance of staying off her back that on her back she has moderate sleep apnea with an AHI of 22 and desaturations 79%. Assessment & Plan (11/17/2017 9:34 AM CDT): She will continue to avoid sleeping in the supine position. Persistent disorder of initiating or maintaining sleep 11/01/2014 Overview (09/24/2016): Persistent disorder of initiating or maintaining sleep Assessment & Plan (12/27/2018 10:02 AM CDT): She will take trazodone 100 mg nightly at bedtime. Assessment & Plan (11/17/2017 9:34 AM CDT): She will practice good sleep hygiene habits avoiding lying in bed longer than 20 min if she is not asleep. She will take trazodone 100 mg at bedtime. 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 10/13/2013 Rosacea 10/13/2013 Skin callus 10/13/2013 Lentigo 10/07/2012 Inflamed seborrheic keratosis 10/13/2011 Skin neoplasm 01/12/2011 Overview (10/01/2017): Description: Skin Neoplasm Abnormal mammogram 04/15/2009 Encounters Date Type Department Care Team Description 12/20/2024 9:30 AM CDT Office Visit [facility] [address] [place] [address] [place] [phone] Gunner Sauceda MD Nonrheumatic aortic valve stenosis (Primary Dx); Essential hypertension; Orthostatic dizziness; Need for lipid screening 12/20/2024 Telephone [facility] [address] [place] [address] [place] [phone] Gunner Sauceda MD 12/20/2024 Cardiology Conference [facility] Non-invasive Cardiac Diagnostic Testing [address] [place] [address] Charles Stapleton RN 12/20/2024 Telephone [facility] at [address] [place] [phone] Gunner Sauceda MD [facility] 11/17/2024 11:30 AM CDT Office Visit [facility] [address] [facility] [address] [place] [phone] Miriam Foley MD History of nonmelanoma skin cancer (Primary Dx); Frontal fibrosing alopecia; Asymptomatic varicose veins of both lower extremities; Burn from the sun; Hypertrophic scar 10/26/2024 Results Follow-Up [facility] [address] [place] [address] [place] [phone] Stefania Schmidt NP Transthoracic Echo (TTE) Complete W Doppler/CF 10/25/2024 11:15 AM CDT Ancillary Procedure [facility] [address] [place] [phone] Aortic valve stenosis, etiology of cardiac valve disease unspecified from Last 3 Months Surgical History Surgery Date Site/Laterality Comments KNEE SURGERY Left knee surgery OTHER SURGICAL HISTORY UPPP procedure UVULOPALATOPHARYNGOPLASTY 06/21/2005 - 06/20/2006 TONSILLECTOMY/ADENOIDECTOMY ROTATOR CUFF REPAIR Right Medical History Medical History Date Comments Gastroesophageal reflux disease GERD - Gastro-esophageal reflux disease; Comments: AKV 10/29/2014 - Aortic valve stenosis Hypertension Motion sickness Family History Medical History Relation Name Comments Hypertension Father Hypertension; Alzheimer's disease Mother Alzheime r's disease; Hypertension Mother Hypertension; Parkinsonism Mother Parkinson's dis ease; Other Son 1 Somnambulism; Other Son 2 Somniloquy; Relation Name Status Comments Father Mother Son 1 Son 2 Social History Tobacco Use Types Packs/Day Years Used Date Smoking Tobacco: Never Passive Smoke Exposure: Never Smokeless Tobacco: Never Tobacco Cessation:Counseling Given: Not Answered Alcohol Use Standard Drinks/Week Comments Yes 0 [...] on file Legal Sex 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 Gender Identity Not on file Sexual Orientation Not on file Obstetrics History Last Filed Vital Signs Vital Sign Reading Time Taken Comments Blood Pressure 118/82 12/20/2024 9:27 AM CDT Pulse 68 12/20/2024 9:27 AM CDT Temperature 36.2 C (97.2 F) 04/25/2024 10:32 AM MACHINING TECHNICIAN Respiratory Rate 15 04/25/2024 10:32 AM MACHINING TECHNICIAN Oxygen Saturation 98% 12/20/2024 9:27 AM CDT Inhaled Oxygen Concentration - - Weight 86.3 kg (190 lb 4.8 oz) 12/20/2024 9:27 A M CDT Height 162.6 cm (5' 4) 12/20/2024 9:27 AM CDT Body Mass Index 32.66 12/20/2024 9:27 AM CDT Plan of Treatment Upcoming Encounters Date Type Department Care Team (Latest Contact Info) Description 01/18/2025 11:30 AM CDT Hospital Encounter [facility] Cardiac Catheterization Lab [id number] [place] [address] Gunner Sauceda MD [address] [facility] [place] [address] Aortic valve stenosis, etiology of cardiac valve disease unspecified 01/18/2025 11:30 AM CDT - 01/18/2025 1:00 PM CDT Surgery [facility] Cardiac Catheterization Lab [id number] [place] [address] Gunner Sauceda MD [address] [place] [address] LEFT HEART CATHETERIZATION WITH CORONARY ANGIOGRAPHY AND WITH OR WITHOUT LEFT VENTRICULOGRAM [id number] Health Maintenance Due Date Last Done Comments Breast Cancer Screening-Mammogram 1955 Colon Cancer Screening-Colonoscopy 1955 Depression Screening 1955 Hepatitis C Screening 1955 Osteoporosis Screening-Bone Density Scan 1955 Hepatitis B Screening 1972 Pneumococcal vaccine 65+ (1 of 1 - PCV) 2004 Zoster Vaccine (2 of 3) 02/22/2017 12/28/2016 Well Visit 65+ 2019 Fall Risk Assessment 06/25/2023 06/25/2022 Influenza Vaccine (#1) 2025 DTaP/Tdap/Td Vaccine (2 - Td or Tdap) 12/28/202603/2017 Procedures Procedure Name Priority Date/Time Associated Diagnosis Comments POCT LIPID PANEL Routine 12/20/2024 10:3 4 AM CDT Need for lipid screening TRANSTHORACIC ECHO (TTE) COMPLETE W DOPPLER/CF W CONTRAST Routine 10/25/2024 11:47 AM CDT Aortic valve stenosis, etiology of cardiac valve disease unspecified from Last 3 Months Results * (ABNORMAL) POCT lipid panel (12/20/2024 10:34 AM CDT) Cholesterol, POC 212 <200 MG/DL Comment:GLU = 89 HDL, POC 58 >=40 mg/dL Triglycerides, POC 70 <=149 mg/dL LDL Cholesterol POC 140(A) <=129 mg/dL Chol/HDL Ratio, POC 2.4 NONE Non-HDL Cholesterol, POC 154 NONE mg/dL Cholesterol Total, POC 212(A) 30 - 199 mg/dL Capillary blood 12/20/2024 1 0:34 AM CDT us Gunner Sauceda MD POINT OF CARE TEST ORDERABLES Fi nal Result * TRANSTHORACIC ECHO (TTE) COMPLETE W DOPPLER/CF W CONTRAST (10/25/2024 11:47 AM CDT) Pathologist [facility] EF Mod BP 63 % CONS SCIMAGE Anatomical Region Laterality Modality Ultrasound 10/25/2024 11:0 9 AM CDT Narrative 10/25/2024 3:[address] [facility] Cardiology [address] [facility] [address], [place] [address] [address] [facility] [address], [place] [address] P:[phone] P:[phone] Echocardiographic Report Patient Name: DMITRI CARR A : 1955 Study Date: 10/25/2024 11:09:35 AM Gender: F Tech: Location: [place] Ref Provider: STEFANIA SCHMIDT Height(Cm): 163 BSA: 1.91 Weight(Kg): 80.3 Heart Rate: 81 BP: 126 / 74 Quality: Definity contrast agent used to enhance endocardial border definition Order Provider: STEFANIA SCHMIDT PROCEDURES: Echocardiographic Report: Transthoracic echocardiogram with complete 2D, M-Mode, color Doppler examination and Definity contrast. With Strain Analysis. INDICATIONS: I35.0 Nonrheumatic aortic (valve) stenosis. MEASUREMENTS: 2D/MM Value Range Doppler Value Range EF Mod BP 63 % [ 54 - 74 ] TOM Vmax 1.03 cm2 [ 2.00 - 4.00 ] EF Teich MM 63 % [ 54 - 74 ] AV Mean PG 36 mmHg LVIDd 2D 4.56 cm [ 3.80 - 5.20 ] AV Peak Quentin 3.76 m/s [ 1.00 - 1.70 ] LVIDd MM 4.73 cm [ 3.80 - 5.20 ] AV Peak PG 56 mmHg LVIDs 2D 3.02 cm [ 2.20 - 3.50 ] AV VTI 84.43 cm LVIDs MM 3.14 cm [ 2.20 - 3.50 ] LVOT Diam 2.00 cm [ 1.70 - 2.10 ] LVPWd 2D 1.04 cm [ 0.60 - 0.90 ] LVOT Peak Quentin 1.23 m/s [ 0.70 - 1.10 ] LVPWd MM 1.11 cm [ 0.60 - 0.90 ] LVOT VTI 29.65 cm IVSd 2D 1.15 cm [ 0.60 - 0.90 ] MV E Peak Quentin 0.98 m/s [ 0.60 - 1.30 ] IVSd MM 1.46 cm [ 0.60 - 0.90 ] MV A Peak Quentin 1.36 m/s [ 1.00 - 1.20 ] LA Dimension MM 3.78 cm [ 2.70 - 3.80 ] MV Mean PG 3 mmHg [ 0 - 5 ] AoR Diam MM 3.14 cm [ 2.70 - 3.70 ] MV PHT 47 msec [ 20 - 100 ] LA Volume Index 37 cc/m2 [ 16 - 34 ] MVA PHT 4.68 cm2 [ 2.00 - 4.00 ] MV Decel Time 282 msec [ 104 - 258 ] PV Peak Quentin 1.66 m/s [ 0.40 - 0.80 ] TR Peak Quentin 2.86 m/s [ 1.00 - 2.80 ] TR Peak PG 33 mmHg RVSP 41.00 mmHg [ 10.00 - 36.00 ] Lateral E` 0.04 m/s [ 0.10 - 0.15 ] E` 0.05 m/s E/E` 26 2D/MM Value Range Doppler Value Range - FINDINGS: Interpretation Site: Exam was interpreted at [facility]. Left Ventricle: Normal left ventricular size. Definity contrast agent used to visually enhance endocardial wall motion and contractility. Lot Number: [id number]. Moderate concentric left ventricular hypertrophy. Normal global left ventricular systolic function. Impaired diastolic relaxation Grade I. Ejection fraction is measured at 63 %. Global Longitudinal Strain is -11 %. Right Ventricle: Normal right ventricular size. Normal right ventricular systolic function. Left Atrium: There is mild enlargement of left atrium. Right Atrium: The right atrium is normal in size. Atrial Septum: Normal atrial septum. Mitral Valve: Dense mitral annular calcification. Trivial regurgitation of the mitral valve. Mild mitral stenosis. Mean gradient of 3.00 mmHg. Aortic Valve: Severe aortic stenosis. Peak Velocity of 3.76 m/s. Mean gradient of 36.0 mmHg. Valve area of 0.9 cm2. Trace aortic valve regurgitation. Tricuspid Valve: Normal appearance of the tricuspid valve. Mild pulmonary hypertension based on right ventricular systolic pressure. Estimated peak RVSP is 41 mmHg. Trivial regurgitation in the tricuspid valve. Pulmonic Valve: Pulmonic valve not well visualized. Pericardium: Normal pericardium with no significant pericardial effusion. Aorta: Mild aortic root calcification. IVC: The IVC is not well visualized. CONCLUSIONS: Definity contrast agent used to visually enhance endocardial wall motion and contractility. Normal LV size. Moderate concentric left ventricular hypertrophy. Normal global left ventricular systolic function. Impaired diastolic relaxation Grade I. Ejection fraction is measured at 63 %. Global Longitudinal Strain is -11 %. Normal RV and systolic function. Mild enlargement of left atrium. Dense mitral annular calcification. Trivial MR. Mild mitral stenosis. Mean gradient of 3.00 mmHg. Aortic valve appears calcified and severely restricted. Severe aortic stenosis with slightly lower mean gradient. Peak Velocity 3.76 m/s. Mean gradient 36.0 mmHg. Valve area 0.9 cm2. Trivial aortic regurgitation. Mild pulmonary hypertension, RVSP 41 mmHg. Trivial regurgitation in the tricuspid valve. Electronically Signed By: Gunner Sauceda MD, [facility] 10/25/2024 3:41:41 PM CDT Procedure Note Gunner Sauceda MD - 10/25/2024 [facility] Medical [facility] Cardiology [address] [facility] [address], [place] [address] [address] [facility] [address], [place] [address] P:[phone] P:[phone] Echocardiographic Report Patient Name: DMITRI CARR A : 1955 Study Date: 10/25/2024 11:09:35 AM Gender: F Tech: Location: [facility] Provider: STEFANIA SCHMIDT Height(Cm): 163 BSA: 1.91 Weight(Kg): 80.3 Heart Rate: 81 BP: 126 / 74 Quality: Definity contrast agent used to enhance endocardial borderdefinition Order Provider: STEFANIA SCHMIDT PROCEDURES: Echocardiographic Report: Transthoracic echocardiogram with complete 2D, M-Mode, color Dopplerexamination and Definity contrast. With Strain Analysis. INDICATIONS: I35.0 Nonrheumatic aortic (valve) stenosis. MEASUREMENTS: 2D/MM Value Range Doppler ValueRange EF Mod BP 63 % [ 54 - 74 ] TOM Vmax 1.03cm2 [ 2.00 - 4.00 ] EF Teich MM 63 % [ 54 - 74 ] AV Mean PG 36mmHg LVIDd 2D 4.56 cm [ 3.80 - 5.20 ] AV Peak Quentin 3.76m/s [ 1.00 - 1.70 ] LVIDd MM 4.73 cm [ 3.80 - 5.20 ] AV Peak PG 56mmHg LVIDs 2D 3.02 cm [ 2.20 - 3.50 ] AV VTI 84.43cm LVIDs MM 3.14 cm [ 2.20 - 3.50 ] LVOT Diam 2.00 cm[ 1.70 - 2.10 ] LVPWd 2D 1.04 cm [ 0.60 - 0.90 ] LVOT Peak Quentin 1.23m/s [ 0.70 - 1.10 ] LVPWd MM 1.11 cm [ 0.60 - 0.90 ] LVOT VTI 29.65cm IVSd 2D 1.15 cm [ 0.60 - 0.90 ] MV E Peak Quentin 0.98m/s [ 0.60 - 1.30 ] IVSd MM 1.46 cm [ 0.60 - 0.90 ] MV A Peak Quentin 1.36m/s [ 1.00 - 1.20 ] LA Dimension MM 3.78 cm [ 2.70 - 3.80 ] MV Mean PG 3 mmHg[ 0 - 5 ] AoR Diam MM 3.14 cm [ 2.70 - 3.70 ] MV PHT 47 msec[ 20 - 100 ] LA Volume Index 37 cc/m2 [ 16 - 34 ] MVA PHT 4.68cm2 [ 2.00 - 4.00 ] MV Decel Time 282 msec [ 104 - 258 ] PV Peak Quentin 1.66 m/s [ 0.40 - 0.80 ] TR Peak Quentin 2.86 m/s [ 1.00 - 2.80 ] TR Peak PG 33 mmHg RVSP 41.00 mmHg [ 10.00 - 36.00 ] Lateral E` 0.04 m/s [ 0.10 - 0.15 ] E` 0.05 m/s E/E` 26 2D/MM Value Range Doppler ValueRange - FINDINGS: Interpretation Site: Exam was interpreted at [facility]. Left Ventricle: Normal left ventricular size. Definity contrast agent used to visuallyenhance endocardial wall motion and contractility. Lot Number: [id number]. Moderateconcentric left ventricular hypertrophy. Normal global left ventricular systolic function.Impaired diastolic relaxation Grade I. Ejection fraction is measured at 63 %.Global Longitudinal Strain is -11 %. Right Ventricle: Normal right ventricular size. Normal right ventricular systolicfunction. Left Atrium: There is mild enlargement of left atrium. Right Atrium: The right atrium is normal in size. Atrial Septum: Normal atrial septum. Mitral Valve: Dense mitral annular calcification. Trivial regurgitation of the mitralvalve. Mild mitral stenosis. Mean gradient of 3.00 mmHg. Aortic Valve: Severe aortic stenosis. Peak Velocity of 3.76 m/s. Mean gradient of 36.0mmHg. Valve area of 0.9 cm2. Trace aortic valve regurgitation. Tricuspid Valve: Normal appearance of the tricuspid valve. Mild pulmonary hypertensionbased on right ventricular systolic pressure. Estimated peak RVSP is 41 mmHg. Trivialregurgitation in the tricuspid valve. Pulmonic Valve: Pulmonic valve not well visualized. Pericardium: Normal pericardium with no significant pericardial effusion. Aorta: Mild aortic root calcification. IVC: The IVC is not well visualized. CONCLUSIONS: Definity contrast agent used to visually enhance endocardial wall motionand contractility. Normal LV size. Moderate concentric left ventricularhypertrophy. Normal global left ventricular systolic function. Impaired diastolic relaxationGrade I. Ejection fraction is measured at 63 %. Global Longitudinal Strain is -11%. Normal RV and systolic function. Mild enlargement of left atrium. Dense mitral annular calcification. Trivial MR. Mild mitral stenosis. Meangradient of 3.00 mmHg. Aortic valve appears calcified and severely restricted. Severe aorticstenosis with slightly lower mean gradient. Peak Velocity 3.76 m/s. Mean gradient 36.0mmHg. Valve area 0.9 cm2. Trivial aortic regurgitation. Mild pulmonary hypertension, RVSP 41 mmHg. Trivial regurgitation in thetricuspid valve. Electronically Signed By: Gunner Sauceda MD, [facility] 10/25/2024 3:41:41 PM CDT Stefania Schmidt NP CV ECHO PROCEDURES Final Result from Last 3 Months Insurance MEDICARE [facility] FEDERAL MEDICARE [facility] MEDICARE [facility] Care Teams Data Warehouse Architect Relationship Specialty Start Date End Date Nely Matamoros MD PCP - General 10/23/16
--- OUTSIDE RECORDS SUMMARY | 2025-01-15 07:02 | XMS_ITS | Referral Summary ---
Author Organization [address] Address [address] [place] [address] Care Team Providers Care Beauty Operator Apprentice Name Role Phone Nely Matamoros MD Primary Care Provider [phone] Encounters Date Type Department Care Team Description 12/20/2024 Telephone [facility] Cardiology [address] [facility] [address] [place] [address] Gunner Sauceda MD 12/20/2024 Cardiology Conference [facility] Non-invasive Cardiac Diagnostic Testing [address] [place] [address] Charles Stapleton RN 12/20/2024 Telephone [facility] Cardiology at [address] [place] [address] [facility] 12/20/2024 9:30 AM CDT Office [facility] Cardiology [address] [facility] [address] [place] [address] Gunner Sauceda MD Nonrheumatic aortic valve stenosis (Primary Dx); Essential hypertension; Orthostatic dizziness; Need for lipid screening 11/17/2024 11:30 AM CDT Office Visit [facility] Dermatology [address] [place] [address] [address] [place] [address] Miriam Foley MD History of nonmelanoma skin cancer (Primary Dx); Frontal fibrosing alopecia; Asymptomatic varicose veins of both lower extremities; Burn from the sun; Hypertrophic scar 10/26/2024 Results Follow-Up [facility] Cardiology [address] [place] [address] Stefania Schmidt NP Transthoracic Echo (TTE) Complete W Doppler/CF 10/25/2024 11:15 AM CDT Ancillary Procedure [facility] Cardiology [address] [place] [address] Aortic valve stenosis, etiology of cardiac valve disease unspecified from Last 3 Months Allergies No known active allergies Medications calcium [...] (04/22/2022): Added automatically from request for surgery [id number] Postoperative follow-up 12/27/2020 Acid reflux 12/27/2020 Knee [...] (10/01/2017): Description: Skin Neoplasm Abnormal mammogram 04/15/2009 Social History Tobacco Use Types Packs/Day Years [...] on file 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 Gender Identity Not on file Sexual Orientation Not on file Last Filed Vital Signs Vital Sign Reading Time Taken Comments Blood Pressure 118/82 12/20/2024 9:27 AM CDT Pulse 68 12/20/2024 9:27 AM CDT Temperature 36.2 C (97.2 F) 04/25/2024 10:32 AM COLOR CHECKER Respiratory Rate 15 04/25/2024 10:32 AM COLOR CHECKER Oxygen Saturation 98% 12/20/2024 9:27 AM CDT Inhaled Oxygen Concentration - - Weight 86.3 kg (190 lb 4.8 oz) 12/20/2024 9:27 A M CDT Height 162.6 cm (5' 4) 12/20/2024 9:27 AM CDT Body Mass Index 32.66 12/20/2024 9:27 AM CDT Plan of Treatment Upcoming Encounters Date Type Department Care Team (Latest Contact Info) Description 01/18/2025 11:30 AM CDT Hospital Encounter [facility] Cardiac Catheterization Lab [address] [place] [address] Gunner Sauceda MD [address] [place] [address] Aortic valve stenosis, etiology of cardiac valve disease unspecified 01/18/2025 11:30 AM CDT - 01/18/2025 1:00 PM CDT Surgery [facility] Cardiac Catheterization Lab [address] [place] [address] Gunner Sauceda MD [address] [place] [address] LEFT HEART CATHETERIZATION WITH CORONARY ANGIOGRAPHY AND WITH OR WITHOUT LEFT VENTRICULOGRAM [id number] Procedures Procedure Name Priority Date/Time Associated Diagnosis [...] CONTRAST (10/25/2024 11:47 AM CDT) Pathologist [facility] EF Mod BP 63 % CONS SCIMAGE Anatomical Region Laterality Modality Ultrasound 10/25/2024 11:0 9 AM CDT Narrative 10/25/2024 3:42 PM CDT [facility] Cardiology [address], [place] [address] [address] [facility] [address], [place] [address] P:[phone] P:[phone] Echocardiographic Report Patient Name: DMITRI CARR A : 1955 Study Date: 10/25/2024 11:09:35 AM Gender: F Tech: Location: [place] Ref Provider: STEFANIA SCHMIDT Height(Cm): 163 BSA: [...] FINDINGS: Interpretation Site: Exam was interpreted at [facility]. Left Ventricle: Normal left ventricular size. Definity [...] valve. Electronically Signed By: Gunner Sauceda MD, [facility] 10/25/2024 3:41:41 PM CDT Procedure Note Gunner Sauceda MD - 10/25/2024 [facility] Cardiology [address] [facility] [address] [id number] [address] [facility] [address], [place] [address] P:[phone] P:[phone] Echocardiographic Report Patient Name: DMITRI CARR A : 1955 Study Date: 10/25/2024 11:09:35 AM Gender: F Tech: Location: [facility] Provider: STEFANIA SCHMIDT Height(Cm): 163 BSA: 1.91 [...] FINDINGS: Interpretation Site: Exam was interpreted at [facility]. Left Ventricle: Normal left ventricular size. Definity [...] valve. Electronically Signed By: Gunner Sauceda MD, [facility] 10/25/2024 3:41:41 PM CDT Stefania Schmidt NP CV ECHO PROCEDURES Final Result from Last 3 Months Insurance MEDICARE [facility] MEDICARE [facility] FEDERAL MEDICARE [facility] Care Teams Beauty Operator Apprentice Relationship Specialty Start Date End Date Nely Matamoros MD [facility] - General 10/23/16
[2025-01-15 07:57] LABS: Hematocrit 43.4 % (37.0-47.0); Hemoglobin 14.1 g/dL (12.0-15.0); Immature Granulocyte Percent A 0.2 % (0-0.5); Lymphocytes Absolute Auto 1.74 K/mm3 (0.9-3.2); Mean Corpuscular HGB Conc 32.5 g/dl (32-36); Mean Corpuscular Hemoglobin 29.1 pg (26-34); Mean Corpuscular Volume 89.5 fl (80-100); Nucleated Red Blood Cells Absolute Auto 0.000 K/mm3 (0.0-0.012); Nucleated Red Blood Cells Perc 0.0 % (0.0-0.2); Platelet Count Result 250 k/mm3 (150-375); Red Blood Count 4.85 M/mm3 (4.2-5.4); White Blood Count 6.1 K/mm3 (4.5-10.0)
[2025-01-15 08:37] LABS: Alanine Aminotransferase 21 U/L (6-35); Albumin Level 4.1 g/dL (3.5-5.1); Alkaline Phosphatase 82 U/L (38-126); Anion Gap 6 mmol/L (4-12); Aspartate Amino Transferase 24 U/L (14-36); Bilirubin,Total 0.3 mg/dL (0.2-1.3); Blood Urea Nitrogen 17 mg/dL (7-17); Calcium 9.5 mg/dL (8.4-10.2); Carbon Dioxide 29 mmol/L (22-30); Chloride 104 mmol/L (98-107); Estimated Glomerular Filt Rate > 60; Glucose 98 mg/dL (65-110); Potassium 4.2 mmol/L (3.4-5.0); Sodium 139 mmol/L (137-145); Total Protein 7.1 g/dL (6.3-8.2)
== END 2025-01-15 06:58 | disposition home or self-care (01) ==
LOC: ANHLAB 07:00
PROVIDERS: PCP Family Medicine; Visit Provider Internal Medicine Cardiovascular Disease
DX: I35.0 Nonrheumatic aortic (valve) stenosis (principal); Z01.812 Encounter for preprocedural laboratory examination
CPT/HCPCS: 36415; 80053; 85025

== ENCOUNTER 2025-03-23 10:48 | Outpatient (CLI) | payer MEDICARE, BC, SELFPAY ==
--- NOTE | ~2025-03-23 | MM_ITS ---
EXAMINATION: MM screening [facility] BI w [facility] HISTORY: Screening TECHNIQUE: Craniocaudal and mediolateral oblique 3-D tomosynthesis images were obtained and synthetic 2-D images were generated. CAD analysis was submitted and interpreted. COMPARISON: Comparison to multiple prior studies sequentially, with oldest reviewed study dated 10/23/2015. BREAST PARENCHYMAL COMPOSITION: Not dense: There are scattered areas of fibroglandular density. FINDINGS: There is no evidence of suspicious mass, calcification, or architectural distortion to suggest malignancy in either breast. There has been no suspicious interval change. IMPRESSION: 1. No mammographic evidence of malignancy. 2. Recommend routine screening mammography in one year. BI-RADS Category 1: Negative Reviewed, dictated and finalized at location B.
--- OUTSIDE RECORDS SUMMARY | 2025-03-23 10:56 | XMS_ITS | Clinical Summary ---
Author Organization [address] Address [address] [place] [address] Care Team Providers Care Case Management Associate Name Role Phone Nely Matamoros MD Primary Care Provider [phone] Allergies No known active allergies Medications calcium [...] Active Problems Problem Noted Date Diagnosed Date Severe aortic stenosis 12/20/2024 Aortic valve stenosis 04/22/2022 Overview (04/22/2022): Added automatically from request for surgery [id number] Postoperative follow-up 12/27/2020 Acid reflux 12/27/2020 Knee [...] Encounters Date Type Department Care Team Description 03/22/2025 Documentation Cardiothoracic Surgery Amisha Lares RN 03/13/2025 3:00 PM CDT Office Visit [facility] Medicine Surgery [address] [place] [address] Donald Gongora MD Aortic valve stenosis, etiology of cardiac valve disease unspecified (Primary Dx) 03/13/2025 Documentation Cardiothoracic Surgery Amisha Lares, PRUDENCE 02/14/2025 Telephone [facility] Dermatology [address] [place] [address] Miriam Foley MD Scheduling Appointments 02/07/2025 12:12 PM CDT - 02/07/2025 11:59 PM CDT Hospital Encounter [facility] Imaging and Radiology [address] [place] [id number] Aortic stenosis, severe Discharge Disposition: Discharge to home or self care 01/24/2025 Orders Only [facility] Cardiac Catheterization Lab [address] [place] [id number] Gunner Angulo MD Aortic stenosis, severe (Primary Dx) 01/18/2025 1:00 PM CDT - 01/18/2025 2:30 PM CDT Surgery [facility] Cardiac Catheterization Lab [address] [place] [id number] Gunner Angulo MD LEFT HEART CATHETERIZATION WITH CORONARY ANGIOGRAPHY AND WITH OR WITHOUT LEFT VENTRICULOGRAM [id number] 01/18/2025 10:37 AM CDT - 01/18/2025 11:59 PM CDT Hospital Encounter [facility] Cardiac Catheterization Lab [address] [place] [address] Aortic valve stenosis, etiology of cardiac valve disease unspecified Discharge Disposition: Discharge to home or self care 01/18/2025 10:36 AM CDT - 01/18/2025 4:43 PM CDT Hospital Encounter [facility] Cardiac Catheterization Lab [address] [place] [address] Gunner Angulo MD Aortic valve stenosis, etiology of cardiac valve disease unspecified Discharge Disposition: Discharge to home or self care 01/15/2025 Telephone [facility] Cardiology [address] [place] [address] Gunner Angulo MD from Last 3 Months Surgical History Surgery Date Site/Laterality Comments KNEE SURGERY Left knee surgery OTHER SURGICAL HISTORY UPPP procedure UVULOPALATOPHARYNGOPLASTY 06/21/2005 - 06/20/2006 TONSILLECTOMY/ADENOIDECTOMY ROTATOR CUFF REPAIR Right CARDIAC CATHETERIZATION 01/18/2025 N/A Procedure: LEFT HEART CATHETERIZATION WITH CORONARY ANGIOGRAPHY AND WITH OR WITHOUT LEFT VENTRICULOGRAM [id number]; Surgeon: Gunner Angulo MD; 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; Service: Cardiovascular; Laterality: N/A; CARDIAC CATHETERIZATION 01/18/2025 N/A Procedure: ULTRASOUND GUIDANCE FOR VASCULAR ACCESS S&I [id number]; Surgeon: Gunner Angulo MD; 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 Monthly or less 01/18/2025 Q2: How many drinks containi ng alcohol do you have on a typical day when you are drinking? 1 or 2 01/18/2025 Q3: How often do you have si x or more drinks on one occasion? Never 01/18/2025 Personal Safety Answer Date Recorded Have you ever been in or are you currently in a harmful physical or emotional relationship or is someone making you feel afraid or unsafe? 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 Gender Identity Not on file Sexual Orientation Not on file Obstetrics History Last Filed Vital Signs Vital Sign Reading Time Taken Comments Blood Pressure 150/110 03/13/2025 3:26 PM CDT Pulse 80 03/13/2025 3:26 PM CDT Temperature 36.5 C (97.7 F) 01/18/2025 10:48 AM CDT Respiratory Rate 20 03/13/2025 3:26 PM CDT Oxygen Saturation 97% 03/13/2025 3:26 PM CDT Inhaled Oxygen Concentration - - Weight 86.2 kg (190 lb) 03/13/2025 3:26 PM CDT Height 160 cm (5' 3) 03/13/2025 3:26 PM CDT Body Mass Index 33.66 03/13/2025 3:26 PM CDT Plan of Treatment Upcoming Encounters Date Type Department Care Team (Latest Contact Info) Description 04/12/2025 8:00 AM CDT Hospital Encounter [facility] Cardiac Catheterization Lab [address] [place] [address] Gunner Angulo MD [address] [facility] [address] [facility], [address] [place] [address] Severe aortic stenosis 04/12/2025 8:00 AM CDT Anesthesia Event [facility] Cardiac Catheterization Lab [address] [place] [address] [place] [address] [address] 04/12/2025 8:00 AM CDT - 04/12/2025 10:30 AM CDT Surgery [facility] Cardiac Catheterization Lab [address] [place] [address] Gunner Angulo MD [address], [address] [place] [address] TAVR - TF, Full Health Maintenance Due Date Last Done Comments Breast Cancer Screening-Mammogram 1955 Colon Cancer Screening-Colonoscopy 1955 Depression Screening 1955 Hepatitis C Screening 1955 Osteoporosis Screening-Bone Density Scan 1955 Hepatitis B Screening 1972 Zoster Vaccine (2 of 3) 02/22/2017 12/28/2016 Well Visit 65+ 2019 Pneumococcal vaccine 65+ (2 of 2 - PCV20 or PCV21) 01/18/2020 Influenza Vaccine (#1) 2025 Fall Risk Assessment 01/18/2026 01/18/2025 DTaP/Tdap/Td Vaccine (2 - Td or Tdap) 12/28/202603/2017 Procedures Procedure Name Priority Date/Time Associated Diagnosis Comments CT TAVR Schedule Routine, Read Routine (OP Routine) 02/07/2025 12:54 PM CDT Aortic stenosis, severe VASCULAR ACCESS US GUIDANCE Routine 01/18/2025 2:09 PM CDT Aortic valve stenosis, etiology of cardiac valve disease unspecified LEFT HEART CATHETERIZATION WITH CORONARY ANGIOGRAPHY AND WITH AND WITHOUT LEFT VENTRICULOGRAM Routine 01/18/2025 2:09 PM CDT Aortic valve stenosis, etiology of cardiac valve disease unspecified TRANSTHORACIC ECHO (TTE) LIMITED/FOLLOW UP W LTD DOPPLER/CF WO CONTRAST Routine 01/18/2025 1:29 PM CDT Aortic valve stenosis, etiology of cardiac valve disease unspecified MODERATE SEDATION 01/18/2025 1:1 8 PM CDT Aortic valve stenosis, etiology of cardiac valve disease unspecified Case Notes ARACELI in pre-procedure COMPREHENSIVE METABOLIC PANEL Routine 01/15/2025 Aortic valve stenosis, etiology of cardiac valve disease unspecified Pre-procedure lab exam CBC WITH AUTO DIFFERENTIAL Routine 01/15/2025 Aortic valve stenosis, etiology of cardiac valve disease unspecified Pre-procedure lab exam from Last 3 Months Results * CT TAVR (02/07/2025 12:54 PM CDT) Anatomical Region Laterality Modality Chest N/A Computed Tomogra phy 02/07/2025 3:01 PM CDT Impressions 02/07/2025 4:00 PM CDT 1. Severe aortic valvular stenosis. 2. Aortic annulus, and abdominal aortic, common iliac, external iliac and femoral artery measurements in preparation for TAVR procedure as described above. 3. Aortic valve calcium score: Agatston 835, Volume 715 mm3. 4. Right coronary artery is 12mm from the aortic anulus and the left coronary artery is 11.5mm from the aortic anulus. 5. The smallest pelvic vessel is the right external iliac artery measuring 6.7mm x 6.8mm Dictated by: Maral ePralta M.D. The radiology attending physician has personally reviewed this study, and had reviewed and/or edited this written report and agrees with it. Electronically signed by: Ty Akhtar M.D. Narrative 02/07/2025 4:00 PM CDT EXAMINATION: Heart CT and CTA abdomen and pelvis with contrast. History: Severe aortic stenosis, pre-T AVR procedure. Technique: Heart CT and CT angiogram of the abdomen and pelvis performed during administration of 125 mL of Optiray 350, intravenously per TAVR Protocol. Images were transferred to an independent workstation for additional 3D post-processing. FINDINGS: Annulus and Thoracic Aortic Measurements (in systole): Aortic valve annulus: Area 358 mm2: circumference 69 mm; 24 mm maximum diameter x 19 mm minimum diameter. Sinuses of Valsalva: 29 mm x 29 mm x 29 mm Sinotubular junction: 27 mm x 25 mm Aortic valve calcium score: Agatston 835, Volume 715mm3. Coronary sinus heights: Right coronary sinus height: 19 mm Left coronary sinus height: 18 mm Non-coronary sinus height: 18 mm There is Severe left ventricular outflow tract calcification. There is Severe mitral annular calcification. Distance to RCA ostium from aortic valve annulus: 12 mm Distance to left main ostium from annulus: 12 mm Deployment angle: 11 BHUT[place]ESE, 13 Caudal Coronary Arteries: Anomalous coronary artery course: No Left main atherosclerosis: Mild LAD atherosclerosis: Moderate Circumflex atherosclerosis: Moderate RCA atherosclerosis: Moderate Abdominal Aortic and Pelvic Arterial Smallest Diameter Measurements (made from centerline curved MPR): Infrarenal aorta: 16 mm x 14 mm Right common iliac artery: 10 mm x 9 mm. There is no calcification. Left common iliac artery: 9 mm x 9 mm . There is no calcification. There is Mild tortuosity of the bilateral common iliac arteries. This is equal in distribution. Right external iliac artery: 7 mm x 7 mm. There is no calcification. Left external iliac artery: 8 mm x 8 mm. There is no calcification. There is Mild tortuosity of the bilateral external iliac arteries. This is equal in distribution. Right common femoral artery: 8 mm. There is no calcification. Left common femoral artery: 8 mm. There is no calcification. There is Mild tortuosity of the bilateral femoral arteries. This is equal in distribution. Other findings: Nodularity of the left hemithyroid measuring approximately 1.5cm, could consider further evaluation with dedicated thyroid ultrasound. No suspicious supraclavicular, axillary, mediastinal, or hilar lymphadenopathy. No suspicious pulmonary nodule or mass. No pleural effusion or pneumothorax. Mild bibasilar atelectasis. No suspicious hepatic lesion or biliary duct dilatation. Hepatic and portal veins are patent. The gallbladder, spleen, pancreas, and bilateral adrenals are unremarkable. Bilateral kidneys enhance symmetrically without hydronephrosis. Urinary bladder is normal. Uterus is present. No suspicious adnexal masses. No suspicious abdominal or pelvic lymphadenopathy. Scattered colonic diverticula without evidence of diverticulitis. The colon and small bowel are normal in caliber without evidence of obstruction or inflammation. No suspicious osseus lesion. Procedure Note Ty Akhtar MD - 02/07/2025 EXAMINATION: Heart CT and CTA abdomen and pelvis with contrast. History: Severe aortic stenosis, pre-T AVR procedure. Technique: Heart CT and CT angiogram of the abdomen and pelvis performed during administration of 125 mL of Optiray 350, intravenously per TAVR Protocol. Images were transferred to an independent workstation for additional 3D post-processing. FINDINGS: Annulus and Thoracic Aortic Measurements (in systole): Aortic valve annulus: Area 358 mm2: circumference 69 mm; 24 mm maximum diameter x 19 mm minimum diameter. Sinuses of Valsalva: 29 mm x 29 mm x 29 mm Sinotubular junction: 27 mm x 25 mm Aortic valve calcium score: Agatston 835, Volume 715mm3. Coronary sinus heights: Right coronary sinus height: 19 mm Left coronary sinus height: 18 mm Non-coronary sinus height: 18 mm There is Severe left ventricular outflow tract calcification. There is Severe mitral annular calcification. Distance to RCA ostium from aortic valve annulus: 12 mm Distance to left main ostium from annulus: 12 mm Deployment angle: 11 BHUT[place]ESE, 13 Caudal Coronary Arteries: Anomalous coronary artery course: No Left main atherosclerosis: Mild LAD atherosclerosis: Moderate Circumflex atherosclerosis: Moderate RCA atherosclerosis: Moderate Abdominal Aortic and Pelvic Arterial Smallest Diameter Measurements (made from centerline curved MPR): Infrarenal aorta: 16 mm x 14 mm Right common iliac artery: 10 mm x 9 mm. There is no calcification. Left common iliac artery: 9 mm x 9 mm . There is no calcification. There is Mild tortuosity of the bilateral common iliac arteries. This is equal in distribution. Right external iliac artery: 7 mm x 7 mm. There is no calcification. Left external iliac artery: 8 mm x 8 mm. There is no calcification. There is Mild tortuosity of the bilateral external iliac arteries. This is equal in distribution. Right common femoral artery: 8 mm. There is no calcification. Left common femoral artery: 8 mm. There is no calcification. There is Mild tortuosity of the bilateral femoral arteries. This is equal in distribution. Other findings: Nodularity of the left hemithyroid measuring approximately 1.5cm, could consider further evaluation with dedicated thyroid ultrasound. No suspicious supraclavicular, axillary, mediastinal, or hilar lymphadenopathy. No suspicious pulmonary nodule or mass. No pleural effusion or pneumothorax. Mild bibasilar atelectasis. No suspicious hepatic lesion or biliary duct dilatation. Hepatic and portal veins are patent. The gallbladder, spleen, pancreas, and bilateral adrenals are unremarkable. Bilateral kidneys enhance symmetrically without hydronephrosis. Urinary bladder is normal. Uterus is present. No suspicious adnexal masses. No suspicious abdominal or pelvic lymphadenopathy. Scattered colonic diverticula without evidence of diverticulitis. The colon and small bowel are normal in caliber without evidence of obstruction or inflammation. No suspicious osseus lesion. IMPRESSION: 1. Severe aortic valvular stenosis. 2. Aortic annulus, and abdominal aortic, common iliac, external iliac and femoral artery measurements in preparation for TAVR procedure as described above. 3. Aortic valve calcium score: Agatston 835, Volume 715 mm3. 4. Right coronary artery is 12mm from the aortic anulus and the left coronary artery is 11.5mm from the aortic anulus. 5. The smallest pelvic vessel is the right external iliac artery measuring 6.7mm x 6.8mm Dictated by: Maral Peralta M.D. The radiology attending physician has personally reviewed this study, and had reviewed and/or edited this written report and agrees with it. Electronically signed by: Ty Akhtar M.D. us Gunner Angulo MD IMG CT PROCEDURES Final Result * LEFT HEART CATHETERIZATION WITH CORONARY ANGIOGRAPHY AND WITH AND WITHOUT LEFT VENTRICULOGRAM, VASCULAR ACCESS US GUIDANCE (01/18/2025 2:09 PM CDT) Anatomical Region Laterality Modality X-Ray Angiograph y Addenda Addendum by Gunner Angulo MD on 01/18/2025 2:22 PM CDT LEFT HEART CATHETERIZATION AND CORONARY ANGIOGRAM REPORT DATE OF PROCEDURE: 01/18/25 INDICATION FOR PROCEDURE: Severe aortic stenosis, pre aortic valve replacement cardiac catheterization BRIEF CLINICAL HISTORY: Dmitri Carr is a 69 y.o. female with aortic stenosis (TOM 0.9 cm2 from 10/25/2024 echo), hypertension. Patient has known aortic stenosis which has been monitored clinically and echocardiographically over the years. She has been experiencing worsening fatigue and dyspnea. Recent echocardiogram from 10/25/2024 showed calcific aortic stenosis, TOM 0.9 cm2, V max 3.76 m/sec, mean gradient slightly lower at 36 mmHg. Patient was brought to the hospital today for pre aortic valve replacement workup. She underwent focus echocardiogram in the assistant laboratory director holding area which showed normal LV systolic function, concentric left ventricular hypertrophy; calcific, trileaflet aortic valve; severe aortic stenosis. V max 3.5 m/sec, mean gradient 36 mmHg. TOM 0.7 cm2; DVI 0.24. Mild aortic regurgitation. Stroke volume index 31 mL per m2. Patient was brought to the assistant laboratory director for cardiac catheterization. Benefits and risks of the procedure were discussed with the patient in depth, and informed consent was taken prior to the procedure. Risks of the procedure include but are not limited to vascular complications like groin hematoma, retroperitoneal bleed, vessel perforation; periprocedural NH, cardiac arrhythmias, stroke, contrast induced nephropathy, and . After discussing all the benefits, risks and alternatives, patient was willing to proceed with the procedure. PROCEDURES PERFORMED: Ultrasound-guided right radial arterial access (CPT 36983) Selective left and right coronary angiogram Distal abdominal aortogram with bilateral iliac runoff Moderate sedation-CPT code 31418 MODERATE SEDATION: Midazolam 1 mg , Fentanyl 25 mcg, start time 1336 stop time 1409, total direct [id number] monitoring of conscious sedation 33 minutes (CPT 52494) TRAINED OBSERVER: Chel Manjarrez RN was trained observer for moderate sedation. ACCESS SITE: Right radial artery PROCEDURE: After obtaining informed consent, patient was brought to the assistant laboratory director and prepped and draped in the usual sterile manner. Time-out and immediate reassessment of the patient was performed. After local anesthesia with lidocaine, right radial artery access was taken with micropuncture needle under ultrasound guidance followed by insertion of a 6 [place] Islander sheath. Patient received 200 mcg of nitroglycerin, 2.5 mg of verapamil through the arterial sheath; and 5000 units of heparin IV. Selective left and right coronary angiography was performed using 5 F JL3.5 and 5F JR4 catheters respectively. Orthogonal views were taken. Next, 4 [place]er PV multi curve was advanced in the distal abdominal aorta, distal abdominal aortogram with bilateral iliac runoff was performed using DSA. Access site hemostasis was achieved with radial band. Patient tolerated procedure well without any immediate procedure related complications. Estimated blood loss was minimal. All specimens removed. The angiographic and other findings are given below. FINDINGS: LEFT MAIN CORONARY: Medium to large caliber, no significant focal stenosis. LEFT ANTERIOR DESCENDING ARTERY: Medium to large caliber vessel in the proximal-mid segment, becomes tortuous in the distal segment and tapers distally. No significant focal stenosis in the LAD or its major diagonal branch. LEFT CIRCUMFLEX ARTERY: Large caliber vessel, gives rise to medium caliber OM1 branch which has poorly defined stenosis at the ostium; and large caliber tortuous OM2 branch without significant focal stenosis. RIGHT CORONARY ARTERY: Large caliber, dominant vessel, gives rise to large caliber PDA and PLV branches without significant focal stenosis. LEFT VENTRICULOGRAM: Not performed PELVIC ANGIOGRAM: Distal most part of the visualized abdominal aorta is a medium caliber vessel; no significant focal stenosis or aneurysm. Bilateral common iliac, external iliac and common femoral arteries are patent. HEMODYNAMIC ASSESSMENT: Opening pressure 137/101 mmHg, closing pressure 136/101 mmHg. CONCLUSIONS: No angiographically significant obstructive disease in the major epicardial vessels. Patent bilateral iliac arteries. Severe calcific aortic stenosis (V max 3.5 m/sec, mean gradient 36 mmHg. TOM 0.7 cm2; DVI 0.24. Stroke volume index 31 mL per m2) PLAN/RECOMMENDATIONS: Additional workup including CT angiogram of chest, abdomen and pelvis and heart team evaluation before consideration for aortic valve replacement. Voice recognition software was used to complete this document, therefore, digital pre press operator variances may occur. Gunner Angulo MD, [facility] 01/18/25 us Gunner Angulo MD CV CARDIAC CATH PROCEDURES Edite d Result - Final * TRANSTHORACIC ECHO (TTE) LIMITED/FOLLOW UP W LTD DOPPLER/CF WO CONTRAST (01/18/2025 1:29 PM CDT) Anatomical Region Laterality Modality Ultrasound 01/18/2025 1:11 PM CDT Narrative 01/18/2025 1:51 [place] [address] Limited Echocardiogram Report Patient Name: DMITRI CARR A : 1955 Study Date: 01/18/2025 1:11:10 PM Gender: F Tech: Location: 5957 Ref Provider: GUNNER ANGULO Height(Cm): 160 BSA: 1.96 Weight(Kg): 86.2 Heart Rate: 62 Quality: Good Order Provider: GUNNER ANGULO PROCEDURES: Echocardiographic Report: Limited transthoracic echocardiogram with 2D and color Doppler. INDICATIONS: I35.0 Nonrheumatic aortic (valve) stenosis. MEASUREMENTS: Doppler Value Range TOM 0.70 cm2 AV Mean PG 35 mmHg AV Peak Quentin 3.52 m/s [ 1.00 - 1.70 ] AV VTI 86.59 cm LVOT Diam 1.97 cm LVOT Peak Quentin 0.84 m/s [ 0.70 - 1.10 ] LVOT VTI 19.21 cm SI LVOT 30.9 ml/m2 [ >= 35.0 ] Doppler Value Range - FINDINGS: Atrial Septum: Normal atrial septum. Left Ventricle: Normal left ventricular size. Moderate concentric left ventricular hypertrophy. Normal global left ventricular systolic function. Left Atrium: There is mild enlargement of left atrium. Right Ventricle: Normal right ventricular size. Normal right ventricular systolic function. Aortic Valve: Severe aortic stenosis. Consider referral to Structural Heart Team for valve evaluation. Mean gradient of 36.0 mmHg. Valve area of 0.7 cm2. Aortic cusps appear severely calcified. Mitral Valve: Moderate mitral annular calcification. Pulmonic Valve: Pulmonic valve not well visualized. Tricuspid Valve: Normal structure of the tricuspid valve. Pericardium: Normal pericardium with no significant pericardial effusion. CONCLUSIONS: Limited echo with Doppler with focus on aortic valve. Normal left ventricular size. Moderate concentric left ventricular hypertrophy. Normal global left ventricular systolic function. LVEF about 60%. Normal right ventricular size and systolic function. Mild enlargement of left atrium. Dense mitral annular calcification. Aortic valve appears trileaflet and is severely calcified with restricted leaflet mobility. Severe aortic stenosis. V max 3.5 m/sec, mean gradient 36 mmHg. TOM 0.7 cm2. DVI 0.24. Mild aortic regurgitation. Stroke volume index 31 mL per m2. Electronically Signed By: Gunner Angulo MD, [facility] 01/18/2025 1:50:52 PM CDT Procedure Note Gunner Angulo MD - 01/18/2025 [place] [address] Limited Echocardiogram Report Patient Name: DMITRI CARR A : 1955 Study Date: 01/18/2025 1:11:10 PM Gender: F Tech: Location: 5957 Ref Provider: GUNNER ANGULO Height(Cm): 160 BSA: 1.96 Weight(Kg): 86.2 Heart Rate: 62 Quality: Good Order Provider: GUNNER ANGULO PROCEDURES: Echocardiographic Report: Limited transthoracic echocardiogram with 2D and color Doppler. INDICATIONS: I35.0 Nonrheumatic aortic (valve) stenosis. MEASUREMENTS: Doppler Value Range TOM 0.70 cm2 AV Mean PG 35 mmHg AV Peak Quentin 3.52 m/s [ 1.00 - 1.70 ] AV VTI 86.59 cm LVOT Diam 1.97 cm LVOT Peak Quentin 0.84 m/s [ 0.70 - 1.10 ] LVOT VTI 19.21 cm SI LVOT 30.9 ml/m2 [ >= 35.0 ] Doppler Value Range - FINDINGS: Atrial Septum: Normal atrial septum. Left Ventricle: Normal left ventricular size. Moderate concentric left ventricularhypertrophy. Normal global left ventricular systolic function. Left Atrium: There is mild enlargement of left atrium. Right Ventricle: Normal right ventricular size. Normal right ventricular systolicfunction. Aortic Valve: Severe aortic stenosis. Consider referral to Structural Heart Team forvalve evaluation. Mean gradient of 36.0 mmHg. Valve area of 0.7 cm2. Aortic cusps appearseverely calcified. Mitral Valve: Moderate mitral annular calcification. Pulmonic Valve: Pulmonic valve not well visualized. Tricuspid Valve: Normal structure of the tricuspid valve. Pericardium: Normal pericardium with no significant pericardial effusion. CONCLUSIONS: Limited echo with Doppler with focus on aortic valve. Normal leftventricular size. Moderate concentric left ventricular hypertrophy. Normal global leftventricular systolic function. LVEF about 60%. Normal right ventricular size and systolic function. Mild enlargement of left atrium. Dense mitral annular calcification. Aortic valve appears trileaflet and is severely calcified with restrictedleaflet mobility. Severe aortic stenosis. V max 3.5 m/sec, mean gradient 36 mmHg.TMO 0.7 cm2. DVI 0.24. Mild aortic regurgitation. Stroke volume index 31 mL per m2. Electronically Signed By: Gunner Angulo MD, [facility] 01/18/2025 1:50:52 PM CDT us Gunner Angulo MD CV ECHO PROCEDURES Final Result * CBC with auto differential (01/15/2025) SCRIBED WBC 6.1 4.5 - 10.0 K/cumm EXTERNAL LAB SCRIBED Hemoglobin 14.1 12.0 - 15.0 g/dL EXTERNAL LAB SCRIBED Hematocrit 43.4 38.9 - 50.3 % EXTERNAL LAB SCRIBED Platelets 250 150 - 400 K/cumm EXTERNAL LAB SCRIBED MPV 9.8 9.1 - 12.3 fL EXTERNAL LAB SCRIBED RBC 4.85 4.20 - 5.40 M/cumm EXTERNAL LAB SCRIBED MCV 89.5 81.3 - 96.4 fL EXTERNAL LAB SCRIBED MCH 29.1 27.1 - 33.3 pg EXTERNAL LAB SCRIBED MCHC 32.5 32.3 - 35.7 g/dL EXTERNAL LAB SCRIBED RDW 13.0 % EXTERNAL LAB SCRIBED NRBC 0.0 % EXTERNAL LAB SCRIBED NRBC Abs 0.00 0.00 - 0.01 K/cumm EXTERNAL LAB SCRIBED Neutrophils 59.7 NONE % EXTERNAL LAB SCRIBED Imm Granulocytes 0.2 NONE % EXTERNAL LAB SCRIBED Lymphocytes 28.5 NONE % EXTERNAL LAB SCRIBED Monocytes 8.8 NONE % EXTERNAL LAB SCRIBED Eosinophils 2.0 NONE % EXTERNAL LAB SCRIBED Basophils 0.8 NONE % EXTERNAL LAB SCRIBED Neutrophils Abs 3.70 1.50 - 6.50 K/cumm EXTERNAL LAB SCRIBED Imm Granulocytes Abs 0.0 0.0 - 0.1 K/cumm EXTERNAL LAB SCRIBED Lymphocytes Abs 1.7 0.8 - 3.3 K/cumm EXTERNAL LAB SCRIBED Monocytes Abs 0.5 0.2 - 0.8 K/cumm EXTERNAL LAB SCRIBED Eosinophils Abs 0.1 0.0 - 0.5 K/cumm EXTERNAL LAB SCRIBED Basophils Abs 0.1 0.0 - 0.1 K/cumm EXTERNAL LAB Blood 01/15/2025 us Gunner Angulo MD LAB BLOOD ORDERABLES Final Resul t EXTERNAL LAB * (ABNORMAL) Comprehensive metabolic panel (01/15/2025) SCRIBED Sodium 139 137 - 145 mmol/L EXTERNAL LAB SCRIBED Potassium 4.2 3.4 - 5.0 mmol/L EXTERNAL LAB SCRIBED Chloride 104 98 - 107 mmol/L EXTERNAL LAB SCRIBED Carbon Dioxide 29 22 - 30 mmol/L EXTERNAL LAB SCRIBED Anion Gap 6 4 - 12 mmol/L EXTERNAL LAB SCRIBED Urea Nitrogen (BUN) 17 7 - 17 mg/dl EXTERNAL LAB SCRIBED Creatinine 0.67(A) 0.7 - 1.0 mg/dl EXTERNAL LAB SCRIBED Glucose 98 65 - 110 mg/dl EXTERNAL LAB SCRIBED Calcium 9.5 8.4 - 10.2 mg/dl EXTERNAL LAB SCRIBED Bilirubin 0.3 0.2 - 1.3 mg/dl EXTERNAL LAB SCRIBED Plasma Protein 7.1 6.3 - 8.2 g/dl EXTERNAL LAB SCRIBED Albumin 4.1 3.5 - 5.1 g/dl EXTERNAL LAB SCRIBED Alkaline Phosphatase 82 38 - 126 Units/L EXTERNAL LAB SCRIBED Alanine Transaminase (ALT) 21 6 - 35 Units/L EXTERNAL LAB SCRIBED Aspartate Transaminase (AST) 24 14 - 36 Units/L EXTERNAL LAB SCRIBED eGFR N/A N/A EXTERNAL LAB SCRIBED eGFR >60 > or = 60 EXTERNAL LAB Blood 01/15/2025 us Gunner Angulo MD LAB BLOOD ORDERABLES Final Resul t EXTERNAL LAB from Last 3 Months Insurance MEDICARE [place] [facility] MEDICARE [facility] FEDERAL MEDICARE [facility] Advance Directives For more information, please contact: [phone] Documents on File Type Date Recorded Patient Spiritual Minister Expl anation ADVANCE DIRECTIVE 01/18/2025 11:27 AM Clarence r of Supervisor Intelligence Analyst-Medical Care Teams Case Management Associate Relationship Specialty Start Date End Date Nely Matamoros MD PCP - General 10/23/16
--- OUTSIDE RECORDS SUMMARY | 2025-03-23 10:56 | XMS_ITS | Clinical Summary ---
Author Organization [facility] Address [address] [place] [id number] Care Team Providers Care Form Builder Helper Name Role Phone Nely Matamoros MD Primary Care Provider [phone] Social History Tobacco Use Types Packs/Day Years [...] COVID-19 Vaccine ( - 2023-2 5 season) 2025 RSV Immunization or 60+ Years (1 - 1-dose 75+ series) 2029 Meningococcal B Vaccine Aged Out No l onger eligible based on patient's age to complete this topic Meningococcal Vaccine Aged Out No waldo jonnie eligible based on patient's age to complete this topic RSV Immunizations Under 20 Months Aged Out No longer eligible based on patient's age to complete this topic Insurance [facility] MEDICARE Care Teams Form Builder Helper Relationship Specialty Start Date End Date Nely Matamoros MD PCP - General FAMILY PRACTICE 01/02/20
--- OUTSIDE RECORDS SUMMARY | 2025-03-23 10:56 | XMS_ITS | Encounter Summary ---
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 Please read and complete/answer the following questions. There are no right or wrong answers. Please azra or indicate the answer that best applies to you. 1. Heart failure affects different people in different ways. Some feel shortness of breath while others feel fatigue. Please indicate how much you are limited by heart failure (shortness of breath orfatigue) in your ability to do the following activities over the past 2 weeks. Activities: Extremely Limited (1) Quite a bit limited (2) Moderately Limited (3) Slightly Limited (4) Not at all limited (5) Limited for other reasons or does not apply (6) Showering/Bathing X Walking 1 block of level ground X Hurrying or jogging (as if to catch a bus) X 2. Over the past 2 weeks, how many times did you have swelling in your feet, ankles or legs when you woke up in the morning? Every Morning (1) 3 or more times a week (2) 1-2 times a week (3) Less than once a week (4) Never in the past 2 weeks (5) X 3. Over the past 2 weeks, on average, how many times has fatigue limited your ability to do what you wanted? All of the time (1) Several times a day (2) At least once a day (3) 3 or more times a week but not every day (4) 1-2 times per week (5) Less than once a week (6) Never over the past 2 weeks (7) X 4. Over the past 2 weeks, on average, how many times has shortness of breath limited your ability to do what you wanted? All of the time (1) Several times a day (2) At least once a day (3) 3 or more times a week but not every day (4) 1-2 times per week (5) Less than once a week (6) Never over the past 2 weeks (7) X 5. Over the past 2 weeks, on average, how many times have you been forced to sleep sitting up in a chair or with at least 3 pillows to prop you up because of shortness of breath? Every Night (1) 3 or more times a week (2) 1-2 times a week (3) Less than once a week (4) Never in the past 2 weeks (5) X 6. Over the past 2 weeks, how much has your heart failure limited your enjoyment of life? Extremely Limited (1) Quite a bit limited (2) Moderately Limited (3) Slightly Limited (4) Not at all limited (5) X 7. If you had to spend the rest of your life with your heart failure the way it is right now, how would you feel about this? Not at all satisfied (1) Mostly dissatisfied (2) Somewhat satisfied (3) Mostly satisfied (4) Completely satisfied (5) X 8. How much does your heart failure affect your lifestyle? Please indicate how your heart failure may have limited your participation in the following activities over the past 2 weeks. Lifestyle Activities: Extremely Limited (1) Quite a bit limited (2) Moderately Limited (3) Slightly Limited (4) Not at all limited (5) Limited for other reasons or does not apply (6) A.Hobbies/Recreation activities X B.Working or doing hand flatwork finisher X C. Visiting family or friends outside of the home X documented in this encounter Plan of Treatment Upcoming Encounters Date Type Department Care Team (Latest Contact Info) Description 04/12/2025 8:00 AM CDT Hospital Encounter [facility] Cardiac Catheterization Lab [address] [place] [id number] Gunner Sauceda MD [address] [facility] [place], [place] [id number] Severe aortic stenosis 04/12/2025 8:00 AM CDT Anesthesia Event [facility] Cardiac [facility]atheterization Lab [address] [place] [address] [place] [address] [address] 04/12/2025 8:00 AM CDT - 04/12/2025 10:30 AM CDT Surgery [facility] Cardiac Catheterization Lab [address] [place] [address] Gunner Sauceda MD [address] [place] [address] TAVR - TF, Full documented as of this encounter Visit Diagnoses Diagnosis Severe aortic stenosis- Primary Aortic valve disorders Severe aortic stenosis- Primary Aortic valve disorders Severe aortic stenosis Aortic valve disorders documented in this encounter Orders Case Request Count Last Ordered Date First Orde red Date CASE REQUEST SOLUTIONS ANALYST 1 03/22/2025 documented in this encounter Care Teams Sampling Expert Relationship Specialty Start Date End Date Nely Matamoros MD PCP - General 10/23/16 documented as of this encounter
--- OUTSIDE RECORDS SUMMARY | 2025-03-23 10:56 | XMS_ITS | Encounter Summary ---
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 Heart Valve Electrical Tester Heart Team Evaluation Note Patient Name:Gloria Carr Age:70 y.o. :1955 Referring Physician: Gunner Sauceda MD PCP:Nely Matamoros MD ASSESSMENT TAVR candidate with expected benefit > risk Symptom Relief or improved survival Possible complications and expected recovery Review of goals and expectations performed with patient and family SDM Education booklet and ACC Cardio-Smart TAVR vs SAVR Decision aid given to patient at time of consultation. Both Interventional Cardiology and Cardiothoracic Surgery had discussions with patient regarding shared decision makingprocess which includes an explanation of patient treatment options. Patient Goals for Treatment: To remain active and able to do the things she enjoys and continue caring for her . RECOMMENDATIONS TAVR recommended Discussed with patient Proceed with TAVR planning and scheduling of procedure documented in this encounter Plan of Treatment Upcoming Encounters Date Type Department Care Team (Latest Contact Info) Description 04/12/2025 8:00 AM CDT Hospital Encounter [facility] Cardiac Catheterization Lab [address] [place] [address] Gunner Sauceda MD [address] [place] [id number] Severe aortic stenosis 04/12/2025 8:00 AM CDT Anesthesia Event [facility] Cardiac Catheterization Lab [address] [place] [address] [place] [address] [address] 04/12/2025 8:00 AM CDT - 04/12/2025 10:30 AM CDT Surgery [facility] Cardiac Catheterization Lab [address] [place] [address] Gunner Sauceda MD [address] [place] [address] TAVR - TF, Full documented as of this encounter Visit Diagnoses Not on filedocumented in this encounter Care Teams Sleep Manager Relationship Specialty Start Date End Date Nely Matamoros MD PCP - General 10/23/16 documented as of this encounter
--- OUTSIDE RECORDS SUMMARY | 2025-03-23 10:56 | XMS_ITS | Clinical Summary ---
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
== END 2025-03-23 10:49 | disposition home or self-care (01) ==
LOC: ANHFOHIMG 10:49
PROVIDERS: PCP Family Medicine; Visit Provider Family Medicine
DX: Z12.31 Encounter for screening mammogram for malignant neoplasm of breast (principal)
CPT/HCPCS: 77063; 77067

== ENCOUNTER 2025-04-02 18:27 | Emergency (ER) | payer MEDICARE, BC, SELFPAY ==
--- NOTE | ~2025-04-02 | XR_ITS ---
XR shoulder RT min 2V HISTORY: pain . COMPARISON: None. FINDINGS: External and internal rotated views and scapular Y view of the right shoulder demonstrate no acute fracture or dislocation. Acromioclavicular joint and glenohumeral joint are unremarkable. IMPRESSION: No acute fracture or dislocation. Reviewed, dictated and finalized at location S.
[2025-04-02 18:30] VITALS: BP 180/79; PULSE 90; RESP 16; TEMP 37.3; O2SAT 100
--- NOTE | 2025-04-02 20:24 | ECG_ITS ---
Test Date: 2025-04-02 20:28:59 Measurements Intervals [place] Rate: 84 P: 53 TN: 170 QRS: -21 QRSD: 87 T: 11 QT: 329 QTc: 390 Interpretive Statements SINUS RHYTHM POSSIBLE LEFT ATRIAL ENLARGEMENT POSSIBLE LEFT VENTRICULAR HYPERTROPHY BORDERLINE R WAVE PROGRESSION, ANTERIOR LEADS CONSIDER INFERIOR INFARCT, AGE INDETERMINATE ABNORMAL ECG No previous ECG available for comparison Electronically Signed On 04-03-2025 05:28:34 CDT by Aries Isaacs D.O.
[2025-04-02 22:44] VITALS: BP 163/89; PULSE 98; RESP 18; O2SAT 95
--- NOTE | 2025-04-03 00:52 | ED.GENADULT ---
HPI - General Adult General Chief complaint: Extremity Problem,Nontraumatic Stated complaint: R. shoulder pain, no trauma Time Seen by Provider: 04/03/25 00:26 History of Present Illness HPI narrative: This is a 70-year-old female presenting with atraumatic right shoulder pain. Pain started 2 days ago. It is worse with movement of her right shoulder. She has not had any traumatic events or injuries. 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 She has not had any fevers. No weakness to the hand. She has been taking Tylenol with some relief. She does not want any stronger pain medication. Related Data Home Medications ?Medication ?Instructions ?Recorded ?Confirmed ?Last Taken ?Type esomeprazole magnesium 20 mg 20 mg PO DAILY 07/21/19 02/02/25 Unknown History capsule,delayed release (Nexium) trazodone 100 mg tablet 100 mg PO .HS 07/25/19 02/02/25 Unknown History vit C 250 mg-vit E 200 unit-zinc 2 cap PO DAILY 07/25/19 02/02/25 Unknown History ox 12.5 iv-awuosh-qxunmi-zeax capsule (ICaps AREDS2) latanoprost 0.005 % eye drops 08/26/19 02/02/25 Unknown History pimecrolimus 1 % topical cream topical 08/26/19 02/02/25 Unknown History flaxseed oil 1,000 mg capsule 1,000 mg PO DAILY 01/22/21 02/02/25 Unknown History ([place]-3 Flaxseed Oil) glucosamine-chondroitin 250 mg-200 2 tablet PO TID 01/22/21 02/02/25 Unknown History mg tablet (Osteo Bi-Flex) multivitamin (Multiple Vitamins 1 tablet PO DAILY 01/22/21 02/02/25 Unknown History tablet) calcium 300 mg-D3 20 mcg-magnesium 1 tablet PO DAILY 12/11/21 02/02/25 Unknown History 25 mg-coppr 0.5 [id number]-lgav-fyjq tablet (Caltrate-D3 Plus Minerals) lisinopril 5 mg tablet 20 mg PO DAILY 05/27/22 02/02/25 Unknown History Allergies Allergy/AdvReac Type Severity Reaction Status Date / Time No Known Allergies Allergy Verified 04/02/25 18:28 [facility] Past Medical History Medical History Aortic stenosis Arthritis Vision abnormalities Elbow dislocation Glaucoma Essential (primary) hypertension Gastro-esophageal reflux disease without esophagitis H/O aortic valve stenosis Pure hypercholesterolemia Vitamin D deficiency Surgical History Surgical History History of total left knee replacement Family History Family History Sibling Family history of thyroid disease Hypertension Father Hypertension Mother Family history of Parkinson's disease Family history of heart disease in male family member before age 55 Social History Social History Smoking status: Never smoker Second hand tobacco smoke exposure: No Alcohol intake: never Substance use: never Substance use type: does not use Lack of Transportation: No Lack of Food: Never True Current Housing: I Have Housing Concerned About Future Housing: No Difficulty Paying Gas/Electric Bills: No Difficulty Paying for Meds: No Currently Unemployed: No Education: High School Diploma/GED Difficulty w/ Childcare or Family Care: No Occupation/Education: retired Gender identity (if verbalized by the patient): Female Exam Narrative: APPEARANCE: No apparent distress. Head: atraumatic. EYES: EOMI, NOSE: Atraumatic NECK: Trachea midline RESPIRATORY: No increased rate of breathing CARDIOVASCULAR: RRR, ABDOMINAL: Non-distended MUSCULOSKELETAl: Focal exam of the right shoulder revealed no obvious deformities, overlying skin changes or warmth. No areas of point tenderness. Pain with active and passive range of motion she has very limited mobility at the shoulder due to pain. Pulses are +2 with Radian ulnar distribution. Radian ulnar median nerve function intact. NEURO: Alert. Moving 4/4 extremities SKIN:: Warm, dry. Normal color PSYCHIATRIC: Normal affect Course Vital Signs Vital signs: Vital Signs Temperature 99.1 F 04/02/25 18:30 Pulse Rate 90 04/02/25 18:30 Respiratory Rate 16 04/02/25 18:30 Blood Pressure 180/79 H 04/02/25 18:30 Pulse Oximetry 100 04/02/25 18:30 Oxygen Delivery Room Air 04/02/25 18:30 Temperature 99.1 F 04/02/25 18:30 Pulse Rate 98 04/02/25 22:44 Respiratory Rate 18 04/02/25 22:44 Blood Pressure 163/89 H 04/02/25 22:44 Pulse Oximetry 95 04/02/25 22:44 Oxygen Delivery Room Air 04/02/25 22:44 Medical Decision Making MDM Narrative Medical decision making narrative: -Course: 70-year-old female presenting with atraumatic right shoulder pain. On exam she has significant pain whenever she moves her shoulder. No warmth or fevers to indicate infection. No traumatic injuries. X-rays were negative for fracture. Differential includes muscle strain, rotator cuff injury, adhesive capsulitis, calcific tendinitis. Patient does not want any stronger pain medication than the Tylenol is taking. Patient given a sling for comfort. She will be referred to an orthopedic surgeon for further management. Vital Signs Vital Signs: Vital Signs Temperature 99.1 F 04/02/25 18:30 Pulse Rate 90 04/02/25 18:30 Respiratory Rate 16 04/02/25 18:30 Blood Pressure 180/79 H 04/02/25 18:30 Pulse Oximetry 100 04/02/25 18:30 Oxygen Delivery Room Air 04/02/25 18:30 Temperature 99.1 F 04/02/25 18:30 Pulse Rate 98 04/02/25 22:44 Respiratory Rate 18 04/02/25 22:44 Blood Pressure 163/89 H 04/02/25 22:44 Pulse Oximetry 95 04/02/25 22:44 Oxygen Delivery Room Air 04/02/25 22:44 Discharge Plan Discharge Clinical Impression: Right shoulder pain Patient Disposition: Home Condition: Stable Instructions: Antibiotic Form, Shoulder Pain (ED) Additional Instructions: You were seen in the emergency department for shoulder pain. Your x-rays were negative fracture. Please follow-up with the orthopedic surgeon listed below. Call his clinic tomorrow morning close follow-up. Continue using Tylenol and the sling as needed for pain. Patient Language: Iranian Prescriptions: No Action multivitamin [Multiple Vitamins] Tablet 1 tablet PO DAILY flaxseed oil [[place]-3 Flaxseed Oil] 1,000 mg capsule 1,000 mg PO DAILY Rx Instructions: administer with a meal glucosamine-chondroitin [Osteo Bi-Flex] 250-200 mg tablet 2 tablet PO TID Rx Instructions: give after food/meal Caltrate-D3 Plus Minerals 300 mg-800 unit -25 mg-0.5 mg tablet 1 tablet PO DAILY esomeprazole magnesium [Nexium] 20 mg capsule,delayed release(DR/EC) 20 mg PO DAILY trazodone 100 mg tablet 100 mg PO .HS ICaps AREDS2 250 mg-200 unit -12.5 mg-1 mg capsule 2 cap PO DAILY lisinopril 5 mg tablet 20 mg PO DAILY gabapentin 300 mg capsule 300 mg PO DAILY Qty: 30 3RF sertraline 25 mg tablet 25 mg PO DAILY Qty: 30 1RF latanoprost 0.005 % drops pimecrolimus 1 % cream TOPICAL tolterodine 4 mg capsule,extended release 24hr 4 mg PO DAILY Qty: 90 3RF Follow-up/Referrals: Nely Matamoros MD [Primary Care Provider, Family Practice] Justus Greene MD [Physician, Orthopedics] - 1 Day Referral Note: Shoulder pain, no known injury.
[2025-04-03 01:04] VITALS: BP 154/82; PULSE 80; RESP 20; TEMP 36.8; O2SAT 100
== END 2025-04-03 01:05 | disposition home or self-care (01) ==
PROVIDERS: Emergency Provider Emergency Medicine; PCP Family Medicine
DX: M25.511 Pain in right shoulder (principal); I35.0 Nonrheumatic aortic (valve) stenosis; I10 Essential (primary) hypertension; E78.00 Pure hypercholesterolemia, unspecified; E55.9 Vitamin D deficiency, unspecified; M19.90 Unspecified osteoarthritis, unspecified site; H40.9 Unspecified glaucoma; K21.9 Gastro-esophageal reflux disease without esophagitis; Z96.652 Presence of left artificial knee joint; R94.31 Abnormal electrocardiogram [ECG] [EKG]
CPT/HCPCS: 73030; 93005; 99283; A4565